=== PATIENT | male | born 1975 | race Caucasian/White ===

== ENCOUNTER 2017-12-22 17:55 | Emergency (ER) | payer OTHER, MEDICAID, SELFPAY ==
[2017-12-22 18:06] VITALS: BP 162/101; PULSE 63; RESP 17; TEMP 36.7; O2SAT 100; BMI 21.7
--- NOTE | 2017-12-22 18:22 | ED.HA ---
HPI - Headache General Chief Complaint: Headache Stated Complaint: MIGRAINE Time Seen by Provider: 12/22/17 18:17 Source: patient Mode of arrival: ambulatory Limitations: no limitations History of Present Illness HPI Narrative: 42-year-old male here for evaluation of a headache. Patient states that it started last evening. Has right-sided is throbbing and aching. Is having photophobia. Does have a history of migraine headaches. He states that he gets about 2 headaches a year. Says the last time that he had a headache like this he came to the emergency department received medicines to the IV which took his pain completely away. Has been on Imitrex in the past but it no longer works for him. No trauma. No fevers. No neck pain. Was a gradual onset. States it feels like his prior headaches. Related Data Previous Rx's Medication Instructions Recorded ondansetron [Zofran ODT] 4 mg SUBLINGUAL Q6HP PRN #20 odt 07/28/17 pantoprazole [Protonix] 40 mg PO QDAY 30 Days #0 tab 07/28/17 Allergies Allergy/AdvReac Type Severity Reaction Status Date / Time codeine Allergy Verified 12/22/17 18:06 paroxetine [From Paxil] Allergy Verified 12/22/17 18:06 Review of Systems Constitutional Denies fatigue, Denies fever(s), Reports headache(s) and Denies weakness Eyes Denies diplopia, Denies loss of vision and Reports photophobia ENT Ears, Nose, Mouth, and Throat: Denies vertigo, Denies dizziness, Denies facial pain and Reports headache(s) Cardiovascular Denies chest pain, Denies syncope, Denies palpitations and Denies dyspnea Respiratory Denies cough and Denies dyspnea Gastrointestinal Gastrointestinal: Denies diarrhea, Denies nausea and Denies vomiting Musculoskeletal Denies myalgias and Denies arthralgias Integumentary/Breasts Denies pruritus and Denies rash Neurologic Denies vertigo, Denies dizziness, Denies syncope, Reports headache(s), Denies focal weakness, Denies loss of vision and Denies weakness Endocrine Denies fatigue and Denies palpitations Hematologic/Lymphatic Denies easy bleeding and Denies easy bruising [facility] Medical History Chronic pain (Acute) Surgical History No pertinent past surgical history (Acute) Social History Smoking Status: Current every day smoker Exam Initial Vital Signs Initial Vital Signs: Vital Signs Temperature 98.0 F 12/22/17 18:06 Pulse Rate 63 12/22/17 18:06 Respiratory Rate 17 12/22/17 18:06 Blood Pressure 162/101 H 12/22/17 18:06 Pulse Oximetry 100 12/22/17 18:06 Const General: cooperative, healthy appearing, comfortable, well developed, well groomed and No acute distress Orientation: alert, awake and oriented x3 HENMT Head: normal to inspection and normocephalic Resp Effort & Inspection: normal respiratory effort Auscultation: clear to auscultation bilaterally Cardio Rate: regular rate Rhythm: regular rhythm GI Inspection: non-distended Palpation: soft Skin Lesions: no lesions Rashes: no rashes Neuro General: alert and oriented x3 Cranial Nerves: CN's II-XI intact bilaterally Cognition: normal cognition Speech: speech normal Motor: muscle tone normal throughout Sensory Exam: no sensory deficits noted Extrem General: normal to inspection and capillary refill normal Psych Appearance: grossly normal and well kempt Course Orders Ordered: Discontinued Medications Diphenhydramine HCl (Benadryl) 25 mg IV NOW ONE Stop: 12/22/17 18:27 Last Admin: 12/22/17 18:40 Dose: 25 mg Sodium Chloride (Normal Saline 0.9%) 1,000 mls @ 1,000 mls/hr IV BOLUS ONE Stop: 12/22/17 19:25 Last Infusion: 12/22/17 19:55 Dose: 0 mls/hr Admin: 12/22/17 18:40 Dose: 1,000 mls/hr Ketorolac Tromethamine (Toradol) 30 mg IV NOW ONE Stop: 12/22/17 18:27 Last Admin: 12/22/17 18:40 Dose: 30 mg Prochlorperazine (Compazine) 10 mg IV NOW ONE Stop: 12/22/17 18:27 Last Admin: 12/22/17 18:39 Dose: 10 mg Vital Signs - 8 hr 12/22/17 18:06 Temperature 98.0 F Pulse Rate 63 Respiratory Rate 17 Blood Pressure 162/101 H Pulse Oximetry 100 MDM - Headache MDM Narrative Medical decision making narrative: Patient reports complete resolution of symptoms after Compazine Benadryl and Toradol here in the emergency department. Headache was like his prior headaches. Will hold on head CT or lumbar puncture for now. Physical exam is not consistent with meningitis. Patient was given return precautions. He was asking to go home. He expressed understanding and agreement plan. Discharge Plan Departure Patient Disposition: Home, Self-Care Clinical Impression: Headache Instructions: DI for Migraine, DI for Headache Activity Restrictions/Additional Instructions: Continue all of your medications as directed. Call your primary care doctor for a follow-up. Return to the emergency department for any new or worsening symptoms Prescriptions: No Action pantoprazole [Protonix] 40 MG tablet,delayed release (DR/EC) 40 mg PO QDAY 30 Days Qty: 0 RF: 0 ondansetron [Zofran ODT] 4 MG tablet,disintegrating 4 mg Sublingual Q6HP PRNQty: 20 RF: 0 Stand Alone Forms: Work/School Restrictions
[2017-12-22] MEDS: PROCHLORPERAZINE 10 MG/2 ML VIAL IV (18:39)
[2017-12-22] MEDS: SODIUM CHLORIDE 0.9% 1,000 ML 1000 ML IV (18:40)
[2017-12-22] MEDS: KETOROLAC 60 MG/2 ML VIAL 30 MG IV (18:40)
[2017-12-22] MEDS: diphenhydrAMINE 50 MG/ML VIAL 25 MG IV (18:40)
[2017-12-22 20:22] VITALS: BP 116/81; PULSE 54; RESP 15; O2SAT 99
== END 2017-12-22 20:23 | disposition home or self-care (01) ==
PROVIDERS: Emergency Provider Emergency Medicine
DX: R51 Headache (principal)
CPT/HCPCS: 96361; 96374; 96375; 99283; 99284; J0780; J1200; J1885

== ENCOUNTER 2018-02-08 17:02 | Emergency (ER) | payer OTHER, MEDICAID, SELFPAY ==
[2018-02-08 17:04] VITALS: BP 173/89; PULSE 52; RESP 15; O2SAT 100; BMI 22.4
--- NOTE | 2018-02-08 17:20 | ED.UPPEXIN ---
HPI - Extremity Injury (Upper) <SORAIDA Pritchard - Last Filed: 02/08/18 22:01> General Chief Complaint: Extremity Injury, Upper Stated Complaint: INFECTED FINGER Time Seen by Provider: 02/08/18 17:20 Source: patient Mode of arrival: ambulatory Limitations: no limitations History of Present Illness HPI narrative: 42-year-old male with history of hypertension is now everyday smoker here for complaint of redness and swelling to his left index finger over the past 3-4 days. He states that he accidentally got a piece of wood splinter into the left index finger. He thinks that he got most of the dial enter out when he was cleaning however he does report worsening redness and swelling to the area is not sure fall splinter came mouth he also reports having a small amount purulent drainage from the puncture site of the splinter area. No fevers or chills. No other trauma reported. No other concerns or complaints. MD complaint: injury to: left and finger Related Data Previous Rx's Medication Instructions Recorded ondansetron [Zofran ODT] 4 mg SUBLINGUAL Q6HP PRN #20 odt 07/28/17 pantoprazole [Protonix] 40 mg PO QDAY 30 Days #0 tab 07/28/17 clindamycin HCl 300 mg PO QID #28 cap 02/08/18 Allergies Allergy/AdvReac Type Severity Reaction Status Date / Time codeine Allergy Verified 02/08/18 17:04 paroxetine [From Paxil] Allergy Verified 02/08/18 17:04 tramadol Allergy Verified 02/08/18 17:04 Review of Systems <SORAIDA Pritchard - Last Filed: 02/08/18 22:01> Constitutional Denies chills, Denies fever(s), Denies lethargy and Denies weakness Eyes Denies change in vision, Denies eye discharge, Denies irritation and Denies loss of vision ENT Ears, Nose, Mouth, and Throat: Denies change in voice, Denies neck pain and Denies sore throat Cardiovascular Denies chest pain, Denies irregular heart rhythm, Denies lightheadedness, Denies palpitations, Denies dyspnea, Denies dyspnea on exertion and Denies orthopnea Respiratory Denies cough, Denies dyspnea, Denies dyspnea on exertion and Denies wheezing Gastrointestinal Gastrointestinal: Denies abdominal pain, Denies change in bowel habits, Denies diarrhea, Denies nausea and Denies vomiting Genitourinary Denies hematuria, Denies flank pain, Denies urinary incontinence and Denies urinary urgency Musculoskeletal Denies neck pain Comments: Splinter to left index finger Neurologic Denies confusion, Denies loss of vision and Denies weakness Psychiatric Denies anxiety, Denies confusion, Denies depression, Denies homicidal ideation and Denies suicidal ideation Endocrine Denies palpitations Hematologic/Lymphatic Denies easy bruising Allergic/Immunologic Denies wheezing Exam <SORAIDA Pritchard - Last Filed: 02/08/18 22:01> Initial Vital Signs Initial Vital Signs: Vital Signs Pulse Rate 52 L 02/08/18 17:04 Respiratory Rate 15 02/08/18 17:04 Blood Pressure 173/89 H 02/08/18 17:04 Pulse Oximetry 100 02/08/18 17:04 Const General: cooperative and well developed Nutritional Appearance: well nourished Orientation: alert, awake, oriented x3 and not confused HENMT Mouth: oral mucosae normal and oropharynx normal Eyes Conjunctivae: conjunctivae normal Sclera: sclerae normal Pupils: PERRL EOM: EOM intact bilaterally Chest Chest: normal inspection of the chest Resp Effort & Inspection: normal respiratory effort, able to speak in complete sentences, no respiratory distress and no use of accessory muscles Auscultation: clear to auscultation bilaterally, no rales, no rhonchi and no wheezes Skin General: no rashes or lesions noted, No jaundice and No petechiae Neuro General: alert, oriented x3, gait normal and no focal motor deficits Speech: speech normal Extrem Other: left middle finger slightly erythematous. No induration or fluctuance. Slight swelling. Distal sensation is intact. Full range of mo tion. Distal cap refill less than 2 sec. 0.5 Cm open lesion that is puncture site to the splinter palmar aspect area of the DIP joint. no foreign bodies appreciated <Karime Small DO - Last Filed: 02/08/18 22:52> Initial Vital Signs Initial Vital Signs: Vital Signs Pulse Rate 52 L 02/08/18 17:04 Respiratory Rate 15 02/08/18 17:04 Blood Pressure 173/89 H 02/08/18 17:04 Pulse Oximetry 100 02/08/18 17:04 Course <SORAIDA Pritchard - Last Filed: 02/08/18 22:01> Orders Ordered: ED Orders 02/08/18 17:49 XR finger LT min 2V Stat Discontinued Medications Diphtheria/Tetanus/Acell Pertussis (Adacel) 0.5 ml IM .ONCE ONE Stop: 02/08/18 17:58 Last Admin: 02/08/18 18:02 Dose: 0.5 ml Vital Signs - 8 hr 02/08/18 17:04 02/08/18 19:17 Pulse Rate 52 L 52 L Respiratory Rate 15 13 Blood Pressure 173/89 H 145/92 H Pulse Oximetry 100 98 <Karime Small DO - Last Filed: 02/08/18 22:52> Orders Ordered: ED Orders 02/08/18 17:49 XR finger LT min 2V Stat Discontinued Medications Diphtheria/Tetanus/Acell Pertussis (Adacel) 0.5 ml IM .ONCE ONE Stop: 02/08/18 17:58 Last Admin: 02/08/18 18:02 Dose: 0.5 ml Vital Signs - 8 hr 02/08/18 17:04 02/08/18 19:17 Pulse Rate 52 L 52 L Respiratory Rate 15 13 Blood Pressure 173/89 H 145/92 H Pulse Oximetry 100 98 MDM - Extremity Injury (Upper) <SORAIDA Pritchard - Last Filed: 02/08/18 22:01> Imaging Data finger : Radiologist's impression: [address] [address] XRay Report Signed Patient: Kameron Duffy JMR#: [id number] : 1975Acct:[id number] Age/Sex: 42 / MDate of Service: 02/08/18 Loc: ED Accession Number: [id number] Procedure: XR finger LT min 2V Ordering Provider: Hemant Galarza PROCEDURE: XR FINGER LT MIN 2V INDICATIONS: possible splinter to left index finger TECHNIQUE: AP hand, 2 views of the second finger(s) acquired. COMPARISON: None. FINDINGS: Bones: No fractures or dislocations. No suspicious bony lesions. Soft tissues: No suspicious soft tissue calcifications. No radiopaque foreign body is noted. IMPRESSION: No gross acute second finger fracture or dislocation. No radiopaque foreign body is seen. Dictated by: Yehuda Redd M.D. on 02/08/2018 at 18:15 Approved by: Yehuda Redd M.D. on 02/08/2018 at 18:16 [facility] Narrative Medical decision making narrative: x-ray of the left fingers were obtained was negative for any acute fractures or foreign bodies. No foreign body is observed on a exam. Wound was cleansed with Shur-Clens and dressed with bacitracin and a dressing. Tetanus was updated in the emergency room. [id number] Tylenol as needed for any discomfort. Will cover for infection to the finger with clindamycin. follow up with primary care provider in the next few days for re-evaluation. For any worsening symptoms return Discharge Plan Departure Patient Disposition: Home Clinical Impression: Splinter of finger Discharge Date/Time: 02/08/18 19:18 Interventions: ED Discharge Assessment Last Done: 02/08/18 19:17 Instructions: DI for Splinter Removal Activity Restrictions/Additional Instructions: x-ray was negative for any foreign bodies or signs of fracture dislocation. splinter is not identified on exam today. Tetanus was updated the emergency room today. Due to signs starting infection here placed on oral antibiotic called clindamycin use as directed. Dress wound daily with antibiotic ointment and a dressing until healed. Follow up with her primary care provider in the next several days for re-evaluation. For any worsening symptoms return to the emergency room. Prescriptions: New clindamycin HCl 300 mg capsule 300 mg PO QID Qty: 28 RF: 0 No Action pantoprazole [Protonix] 40 MG tablet,delayed release (DR/EC) 40 mg PO QDAY 30 Days Qty: 0 RF: 0 ondansetron [Zofran ODT] 4 MG tablet,disintegrating 4 mg Sublingual Q6HP PRNQty: 20 RF: 0 Referrals: [facility] [Provider Group] <Karime Small DO - Last Filed: 02/08/18 22:52> Cosign ED Attending Cosignature Attestation: I was immediately available in the department for consultation. This documentation has been reviewed and I agree with assessment and plan. Supervised by Karime Small DO
--- NOTE | 2018-02-08 17:49 | DI.RAD.S_ITS ---
PROCEDURE: XR FINGER LT MIN 2V INDICATIONS: possible splinter to left index finger TECHNIQUE: AP hand, 2 views of the second finger(s) acquired. COMPARISON: None. FINDINGS: Bones: No fractures or dislocations. No suspicious bony lesions. Soft tissues: No suspicious soft tissue calcifications. No radiopaque foreign body is noted. IMPRESSION: No gross acute second finger fracture or dislocation. No radiopaque foreign body is seen. Dictated by: Yehuda Redd M.D. on 02/08/2018 at 18:15 Approved by: Yehuda Redd M.D. on 02/08/2018 at 18:16
[2018-02-08] MEDS: TET,DIPH,PERTUSS(ACELL),VAC/PF 0.5 ML SYRINGE IM (18:02)
[2018-02-08 19:17] VITALS: BP 145/92; PULSE 52; RESP 13; O2SAT 98
== END 2018-02-08 19:18 | disposition home or self-care (01) ==
PROVIDERS: Emergency Provider Nurse Practitioner Family
DX: S60.451A Superficial foreign body of left index finger, initial encounter (principal); W45.8XXA Other foreign body or object entering through skin, initial encounter
CPT/HCPCS: 73140; 90471; 99282; 99283; 90715

== ENCOUNTER 2018-09-15 22:36 | Emergency (ER) | payer OTHER, MEDICAID, SELFPAY ==
[2018-09-15 22:48] VITALS: BP 121/76; PULSE 67; RESP 16; TEMP 36.9; O2SAT 98
[2018-09-16] MEDS: TRIMETH/SULFA 160/800 PREPACK 1 BOTTLE MISC (00:33)
--- NOTE | 2018-09-16 03:31 | ED_ITS ---
HPI - Extremity Problem General Chief complaint: Extremity Problem,Nontraumatic Stated complaint: RT HAND SWELLING Time Seen by Provider: 09/16/18 00:01 Source: patient Mode of arrival: ambulatory Limitations: no limitations History of Present Illness HPI Narrative: Patient is a 43-year-old male who presents with right hand pain and swelling and redness. He says the neck for the last 2 days progressively getting worse. He has had abscesses in his hands the past. He denies IV drug abuse. He denies fever or chills. Able to move his fingers and thumb easily. MD Complaint: extremity pain and extremity swelling Location: right Related Data Home Medications Medication Instructions Recorded Confirmed gabapentin [Neurontin] 300 mg PO DAILY 09/15/18 09/15/18 metoprolol tartrate 50 mg PO BID 09/15/18 09/15/18 oxycodone 10 mg PO BID 09/15/18 09/15/18 Previous Rx's Medication Instructions Recorded sulfamethoxazole-trimethoprim 1 tab PO BID 7 Days #14 tab 09/16/18 [Bactrim DS] Allergies Allergy/AdvReac Type Severity Reaction Status Date / Time codeine Allergy Verified 09/15/18 22:50 paroxetine [From Paxil] Allergy Verified 09/15/18 22:50 tramadol Allergy Verified 09/15/18 22:50 Review of Systems Review of Systems GENERAL: Denies chills, fatigue, malaise, fever, sweats, travel HEENT: Denies sinus pain, ear pain, sore throat, difficulty swallowing, neck pain RESPIRATORY: Denies dyspnea, cough, wheezing, hemoptysis, sputum. CARDIOVASCULAR: Denies chest pain, palpitations, orthopnea, edema GASTROINTESTINAL: Denies nausea, vomiting, abdominal pain, diarrhea, constipation, melena. : Denies dysuria, frequency, incontinence, hematuria, urinary retention, flank pain. MUSCULOSKELETAL: Denies weakness, joint pain, or bony pain SKIN: See HPI NEUROLOGIC: Denies weakness, dizziness, headache, numbness, change in speech, confusion PSYCHIATRIC: No concerning psychosocial issues. 12 point review of systems is negative except for those stated above and HPI [facility] Medical History Chronic pain (Acute) Surgical History No pertinent past surgical history (Acute) Social History Smoking Status: Current every day smoker Social History Smoking Status: Current every day smoker Exam Initial Vital Signs Initial Vital Signs: Vital Signs Temperature 98.4 F 09/15/18 22:48 Pulse Rate 67 09/15/18 22:48 Respiratory Rate 16 09/15/18 22:48 Blood Pressure 121/76 09/15/18 22:48 Pulse Oximetry 98 09/15/18 22:48 GENERAL: Well-appearing, well-nourished and in no acute distress. CARDIOVASCULAR: peripheral pulses in tact, cap refill <2 sec RESPIRATORY: No respiratory distress, speaks in full sentences without difficulty EXTREMITIES: Normal range of motion, no clubbing or edema. Neurovascularly intact Full range of motion of the right hand and fingers. Has no pain at the scaphoid against resistance of thumb. NEUROLOGICAL: Cranial nerves II through XII grossly intact. Normal gait and speech. SKIN: Right hand abscess 1 cm x 1 cm fluctuation is at base of thumb. He has full flexion-extension of some no induration no streaking Procedures Abscess I/D Site: hand Side (if applicable): right Local Anesthetic: lidocaine 1% Amount of anesthesia used (mL): 2 Technique: needle aspiration Amount of fluid expressed (mL): 2 Irrigation: No Packing used?: none Complications: pain and bleeding Course Orders Ordered: Discontinued Medications Trimethoprim/Sulfamethoxazole (Bactrim Ds Prepack) 1 bottle [facility] ONE Stop: 09/16/18 00:13 Last Admin: 09/16/18 00:33 Dose: 1 bottle Vital Signs - 8 hr 09/15/18 22:48 Temperature 98.4 F Pulse Rate 67 Respiratory Rate 16 Blood Pressure 121/76 Pulse Oximetry 98 MDM - Extremity (Nontraumatic) MDM Narrative Medical decision making narrative: Abscess of hand was drained with his 18 gauge needle pus actually did come out. Overall patient's pain has actually improved. Will put him on antibiotics. Discharge Plan Departure Patient Disposition: Home Clinical Impression: Abscess of hand, right Discharge Date/Time: 09/16/18 00:38 Interventions: ED Discharge Assessment Last Done: 09/16/18 00:36 Instructions: DI for Incision and Drainage of a Skin Abscess Activity Restrictions/Additional Instructions: *You have been diagnosed with right hand skin abscess *What to do: warm compresses *Continue to take medications as directed Bactrim 1 tablet twice daily for 7 days *Follow up with your primary care provider in 2-3 days *Return to ER if you should have redness or swelling in her ability to move fingers or any new, worsening or concerning symptoms Prescriptions: New sulfamethoxazole-trimethoprim [Bactrim DS] 800-160 mg tablet 1 tab PO BID 7 Days Qty: 14 RF: 0 No Action metoprolol tartrate 25 mg tablet 50 mg PO BID RF: 0 gabapentin [Neurontin] 300 mg capsule 300 mg PO DAILY RF: 0 oxycodone 5 mg tablet 10 mg PO BID RF: 0
== END 2018-09-16 00:38 | disposition home or self-care (01) ==
PROVIDERS: Emergency Provider Emergency Medicine
DX: L02.511 Cutaneous abscess of right hand (principal)
CPT/HCPCS: 10060; 99282; 99283

== ENCOUNTER 2019-01-22 11:31 | Emergency (ER) | payer OTHER, MEDICAID, SELFPAY ==
[2019-01-22 11:36] VITALS: BP 145/73; PULSE 82; RESP 18; TEMP 36.7; O2SAT 100; BMI 21.9
[2019-01-22] MEDS: LIDOCAINE 2% INJ MDV 1 ML SUBCUT (15:17)
--- NOTE | 2019-01-22 16:07 | ED.SKABFB ---
HPI - Skin/Abscess/Foreign Bdy <SORAIDA Palomo - Last Filed: 01/23/19 00:49> General Chief complaint: Skin/Abscess/Foreign Body Stated complaint: Infection on behind Time Seen by Provider: 01/22/19 14:31 Source: patient and family Mode of arrival: ambulatory Limitations: no limitations History of Present Illness HPI narrative: This is a 43-year-old gentleman, smoker, who presents with significant other with skin lesion to buttock crack. According to significant other, she had MRSA infection 2 weeks ago and being treated for this. Patient had a lesion on buttock cleavage for several days as a small pimple but today the discomfort, redness, swelling became significantly worse. Patient denies fever, chills but had vomiting x2. According to the significant other, patient is leak gets skin infection throughout his body. Patient denies history of diabetes or immunosuppressed. Last tetanus vaccination was updated in February 2018. Related Data Home Medications Medication Instructions Recorded Confirmed gabapentin [Neurontin] 300 mg PO DAILY 09/15/18 09/15/18 metoprolol tartrate 50 mg PO BID 09/15/18 09/15/18 oxycodone 10 mg PO BID 09/15/18 09/15/18 Previous Rx's Medication Instructions Recorded doxycycline hyclate 100 mg PO BID 7 Days #14 cap 01/22/19 Allergies Allergy/AdvReac Type Severity Reaction Status Date / Time codeine Allergy Verified 01/22/19 11:40 paroxetine [From Paxil] Allergy Verified 01/22/19 11:40 tramadol Allergy Verified 01/22/19 11:40 Review of Systems <SORAIDA Palomo - Last Filed: 01/23/19 00:49> Review of Systems ROS Unobtainable: All systems reviewed & are unremarkable except as noted in HPI and below PFSH <SORAIDA Palomo - Last Filed: 01/23/19 00:49> Medical History Chronic pain (Acute) Surgical History H/O hand surgery (Acute) No pertinent past surgical history (Acute) Social History Smoking Status: Current every day smoker Social History Smoking Status: Current every day smoker Exam <SORAIDA Palomo - Last Filed: 01/23/19 00:49> Narrative Exam Narrative: General appearance: well developed, well nourished, in no acute distress. Head: normocephalic, atraumatic, no scalp lesions, non-tender. Eye: pupil equal, round. EOMI. Nose: nares patent. Oral: mucosa moist. Neck/Thyroid: neck supple, full range of motion, no visible masses. Heart: no clubbing, no cyanosis, no edema. Lungs: Breathing even and unlabored. No stridor. No accessory muscles used. Chest: normal shape and expansion. Abdomen: non-obese, non-distended. Neurologic: alert and oriented. 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 Psych: good eye contact, normal affect. Initial Vital Signs Initial Vital Signs: Vital Signs Temperature 98.1 F 01/22/19 11:36 Pulse Rate 82 01/22/19 11:36 Respiratory Rate 18 01/22/19 11:36 Blood Pressure 145/73 H 01/22/19 11:36 Pulse Oximetry 100 01/22/19 11:36 Skin General: erythema, induration and warm Lesions: lesion noted (Buttock cleavage, painful to light touch, scant purulent drainage) <Álvaro Hamilton DO - Last Filed: 01/23/19 00:53> Initial Vital Signs Initial Vital Signs: Vital Signs Temperature 98.1 F 01/22/19 11:36 Pulse Rate 82 01/22/19 11:36 Respiratory Rate 18 01/22/19 11:36 Blood Pressure 145/73 H 01/22/19 11:36 Pulse Oximetry 100 01/22/19 11:36 Procedures <SORAIDA Palomo - Last Filed: 01/23/19 00:49> Abscess I/D Site: salvatore-rectal (pilonidal cyst) Local Anesthetic: lidocaine 2% Amount of anesthesia used (mL): 2 Technique: incised with #11 blade Amount of fluid expressed (mL): 1 Irrigation: Yes Packing used?: iodoform Complications: other (none and pt tolerated procedure well) Course <SORAIDA Palomo - Last Filed: 01/23/19 00:49> Orders Ordered: ED Orders 01/22/19 16:00 Wound Culture and Gram Stain Stat Discontinued Medications Lidocaine HCl (Xylocaine 2%) 1 ml SUBCUT NOW ONE Stop: 01/22/19 15:06 Last Admin: 01/22/19 15:17 Dose: 1 ml Documented by: LLOYD Vital Signs Vital signs: Vital Signs - 8 hr 01/22/19 11:36 Temperature 98.1 F Pulse Rate 82 Respiratory Rate 18 Blood Pressure 145/73 H Pulse Oximetry 100 <Álvaro Hamilton DO - Last Filed: 01/23/19 00:53> Orders Ordered: ED Orders 01/22/19 16:00 Wound Culture and Gram Stain Stat Discontinued Medications Lidocaine HCl (Xylocaine 2%) 1 ml SUBCUT NOW ONE Stop: 01/22/19 15:06 Last Admin: 01/22/19 15:17 Dose: 1 ml Documented by: LLOYD Vital Signs Vital signs: Vital Signs - 8 hr 01/22/19 11:36 Temperature 98.1 F Pulse Rate 82 Respiratory Rate 18 Blood Pressure 145/73 H Pulse Oximetry 100 MDM - Skin/Abscess/Foreign Bdy <SORAIDA Palomo - Last Filed: 01/23/19 00:49> Differential Diagnosis Differential diagnosis: Likely abscess of skin or subcutaneous tissue (on buttock cleavage), cellulitis and other (pilonidal cyst) Medical Records Attestation: I reviewed the patient's medical records. MDM Narrative Medical decision making narrative: This is 43-year-old male who presents to ED with pilonidal cyst. Patient complain of severe pain with light touch. Mild redness, edema, warmth, scant drainage noted from affected side. Patient denies fever or chills but had 2 episodes of vomiting today. Patient's significant other had recent MRSA infection and treated. Please see procedure note for I & D. 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 Supplies for home dressing change has been provided to patient and significant other. Wound culture is signed out to lab. Patient is prescribed with doxycycline 100 mg b.i.d. dose for 7 day course. Advised warm pack since patient does not use bath tub and to use his own oxycodone as needed for discomfort. The significant other states patient is not allowed to take NSAIDS per his primary care physician due to this elevates his blood pressure. Return precautions were discussed with the patient and advised to follow up with his primary care physician in 2-3 days for re-evaluation. Patient and significant other verbalized understanding and agree with treatment plan. Discharge Plan Departure Patient Disposition: Home Clinical Impression: Pilonidal abscess, Encounter for incision and drainage procedure Discharge Date/Time: 01/22/19 16:31 Instructions: DI for Pilonidal Cyst Drainage and Removal Activity Restrictions/Additional Instructions: You have been diagnosed with [pilonidal cyst and I and D. The culture will be sent out to lab.]. What to do: *Take your medications as directed. Please start antibiotic medication today for next 7 days twice a day and make sure you complete the whole course of antibiotic medication unless this gives allergic reaction. Wound packing change daily and reinforced dressing as needed if it is soaked through. Please use warm pack at least several times a day if you choose not to do Sitz bath to promote healing and drainage. *Follow up with your primary care provider in 2-3 days, call for an appointment. Let them know you were seen in the ED and that we asked you to be seen in follow up. *Return to ED if you have any new, worsening, or concerning symptoms, such as [worsening pain, increasing swelling, redness, fever, warmth, chest pain, breathing difficulty, unable to tolerate fluids, or any acute concerns]. Prescriptions: New doxycycline hyclate 100 mg capsule 100 mg PO BID 7 Days Qty: 14 RF: 0 No Action metoprolol tartrate 25 mg tablet 50 mg PO BID RF: 0 gabapentin [Neurontin] 300 mg capsule 300 mg PO DAILY RF: 0 oxycodone 5 mg tablet 10 mg PO BID RF: 0 Referrals: Zan King MD [Primary Care Provider] - <Álvaro Hamilton DO - Last Filed: 01/23/19 00:53> Sign Out Provider Sign Out Attestation: I was available for consultation during this patient's emergency department encounter
[2019-01-22 16:28] VITALS: BP 156/97; PULSE 85; RESP 18; O2SAT 99
== END 2019-01-22 16:31 | disposition home or self-care (01) ==
PROVIDERS: Emergency Provider Nurse Practitioner Family; PCP Internal Medicine
DX: L05.01 Pilonidal cyst with abscess (principal)
CPT/HCPCS: 10060; 87070; 87075; 87077; 87147; 87186; 87205; 99282

== ENCOUNTER 2019-02-10 12:35 | Emergency (ER) | payer OTHER, MEDICAID, SELFPAY ==
[2019-02-10 12:42] VITALS: BP 171/102; PULSE 51; RESP 20; TEMP 36.9; O2SAT 100
--- NOTE | 2019-02-10 12:43 | PC.NURSE ---
Pt reports he had a pimple last night on his right buttocks that he attempted to pop. Woke today increase pain, redness and swelling. Concerns of staph infection which he has been hospitalized in past for. Denies fevers
--- NOTE | 2019-02-10 12:48 | ED_ITS ---
HPI - Skin/Abscess/Foreign Bdy <SORAIDA Palomo - Last Filed: 02/10/19 22:35> General Chief complaint: Skin/Abscess/Foreign Body Stated complaint: thinks he has a staph infection Time Seen by Provider: 02/10/19 12:42 Source: patient Mode of arrival: Ambulatory Limitations: no limitations History of Present Illness HPI narrative: This is a 43-year-old gentleman, current smoker, who presents to ED with possible staph infection on his right buttock describing as painful and swollen. He reports noticed a small pimple like lesion yesterday and had picked on it. Patient was treated with I and D and doxycycline about a month ago and culture was obtained at that time which showed as MRSA as of pilonidal cyst. Patient reports this has been healed well and has no problem at this time. Patient made an appointment with his PCP but not until next week and his concerned this will get worse. Patient denies fever/chills, nausea or vomiting. He reports gets skin infection very easily and is a recovered IV drug user. Last use of IV drug 5 years ago. Related Data Home Medications Medication Instructions Recorded Confirmed gabapentin [Neurontin] 300 mg PO DAILY 09/15/18 09/15/18 metoprolol tartrate 25 mg PO BID 09/15/18 02/10/19 oxycodone 5 mg PO Q4-6H PRN 09/15/18 02/10/19 dextroamphetamine-amphetamine 20 mg PO BID 02/10/19 Previous Rx's Medication Instructions Recorded doxycycline hyclate 100 mg PO BID 7 Days #14 cap 02/10/19 Allergies Allergy/AdvReac Type Severity Reaction Status Date / Time codeine Allergy Verified 01/22/19 11:40 paroxetine [From Paxil] Allergy Verified 01/22/19 11:40 tramadol Allergy Verified 01/22/19 11:40 Review of Systems <SORAIDA Palomo - Last Filed: 02/10/19 22:35> Review of Systems Narrative: General: Denies fever, chills, fatigue, malaise, sweats. HEENT: Denies sinus pain, ear pain, sore throat, difficulty swallowing, dizziness. Respiratory: Denies dyspnea, cough, wheezing, hemoptysis, sputum. Cardiovascular: Denies chest pain, palpitations, orthopnea, edema. Gastrointestinal: Denies nausea, vomiting, abdominal pain, diarrhea, constipation, melena. : Denies dysuria, frequency, incontinence, hematuria, urinary retention. Musculoskeletal: Denies weakness, joint pain or bony pain. Skin: See HPI Neurologic: Denies weakness, headache, numbness, change in speech, confusion, seizures, incoordination. Psychiatric: No concerning psychosocial issues. 12-point review of systems is negative except for those stated above. PFSH <SORAIDA Palomo - Last Filed: 02/10/19 22:35> Social History Smoking Status: Current every day smoker Exam <SORAIDA Palomo - Last Filed: 02/10/19 22:35> Narrative Exam Narrative: General appearance: well developed, well nourished, in no acute distress. Head: normocephalic, atraumatic, no scalp lesions, non-tender. Eye: pupil equal, round. EOMI. Nose: nares patent. Oral: mucosa moist. Neck/Thyroid: neck supple, full range of motion, no visible masses. Skin: Approximately 1.5 cm for elevated erythematous lesion with dark eye on right buttock without drainage which was traced with a skin pen. About 5 cm induration palpated. No suspicious rashes, lesions over other visible areas. Warm and dry. Heart: no clubbing, no cyanosis, no edema. Lungs: Breathing even and unlabored. No stridor. No accessory muscles used. Chest: normal shape and expansion. Abdomen: non-obese, non-distended. Neurologic: alert and oriented. 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 Psych: good eye contact, normal affect. Initial Vital Signs Initial Vital Signs: Vital Signs Temperature 98.5 F 02/10/19 12:42 Pulse Rate 51 L 02/10/19 12:42 Respiratory Rate 20 02/10/19 12:42 Blood Pressure 171/102 H 02/10/19 12:42 Pulse Oximetry 100 02/10/19 12:42 <Kendal Harrell DO - Last Filed: 02/11/19 08:32> Initial Vital Signs Initial Vital Signs: Vital Signs Temperature 98.5 F 02/10/19 12:42 Pulse Rate 51 L 02/10/19 12:42 Respiratory Rate 20 02/10/19 12:42 Blood Pressure 171/102 H 02/10/19 12:42 Pulse Oximetry 100 02/10/19 12:42 Course <Fuad CardenasSORAIDA - Last Filed: 02/10/19 22:35> Vital Signs Vital signs: Vital Signs - 8 hr 02/10/19 12:42 Temperature 98.5 F Pulse Rate 51 L Respiratory Rate 20 Blood Pressure 171/102 H Pulse Oximetry 100 <Kendal Harrell DO - Last Filed: 02/11/19 08:32> Vital Signs Vital signs: Vital Signs - 8 hr 02/10/19 12:42 Temperature 98.5 F Pulse Rate 51 L Respiratory Rate 20 Blood Pressure 171/102 H Pulse Oximetry 100 MDM - Skin/Abscess/Foreign Bdy <Fuad CardenasSORAIDA - Last Filed: 02/10/19 22:35> Differential Diagnosis Differential diagnosis: Likely abscess of skin or subcutaneous tissue and cellulitis Medical Records Attestation: I reviewed the patient's medical records. [facility] Narrative Medical decision making narrative: This is 43-year-old gentleman who presents to ED with right buttock redness, swelling, pain which started as a pimple yesterday and gotten progressively worse. The patient denies constitutional symptoms. There is no drainage from the site and the physical exam is consistent with cellulitis with induration. No wound culture was obtained today due to lack of drainage. The affected site has lined with a skin marker to compare in a day or so. Patient had for several cellulitis and abscess in his skin in the past. Last wound culture about a month ago from pilonidal cyst came back as MRSA and was treated with Keflex at that time. Patient prescribed with another course of Keflex and advised to follow up with his primary care physician. Return precautions were discussed with the patient and advised to use Hibiclens shower once a week to prevent frequency of skin infection. Patient agrees with the treatment and verbalized understanding. Discharge Plan Departure Patient Disposition: Home Clinical Impression: Cellulitis Qualifiers: Site of cellulitis: buttock Qualified Code(s): L03.317 - Cellulitis of buttock Discharge Date/Time: 02/10/19 13:08 Instructions: DI for Cellulitis -- Adult Activity Restrictions/Additional Instructions: You have been diagnosed with [cellulitis on right buttock. There is no drainage to capture skin culture. History of MRSA infection]. What to do: *Take your medications as directed. Please take doxycycline twice a day for 7 days and this Rx has been transmitted [place]. Please purchase a bottle of Hibiclen and use this once a week to take a shower and hope this will keep the infection frequency decreased. Please do not pick on any skin lesions. *Follow up with your primary care provider in 2-3 days, call for an appointment. Let them know you were seen in the ED and that we asked you to be seen in follow up. *Return to ED if you have any new, worsening, or concerning symptoms, such as [fever, chills, nausea or vomiting, increasing pain/warmth/redness/purulent di scharge, chest pain, breathing difficulty, or any acute concerns]. Prescriptions: New doxycycline hyclate 100 mg capsule 100 mg PO BID 7 Days Qty: 14 RF: 0 No Action metoprolol tartrate 25 mg tablet 25 mg PO BID RF: 0 gabapentin [Neurontin] 300 mg capsule 300 mg PO DAILY RF: 0 oxycodone 5 mg tablet 5 mg PO Q4-6H PRN (Reason: pain) RF: 0 dextroamphetamine-amphetamine 20 mg tablet 20 mg PO BID RF: 0 Referrals: Zan King MD [Primary Care Provider] -
[2019-02-10 13:07] VITALS: BP 129/83; PULSE 55; RESP 16; O2SAT 99
== END 2019-02-10 13:08 | disposition home or self-care (01) ==
PROVIDERS: Emergency Provider Nurse Practitioner Family; PCP Internal Medicine
DX: L03.317 Cellulitis of buttock (principal)
CPT/HCPCS: 99282

== ENCOUNTER 2020-10-12 08:32 | Emergency (ER) | payer OTHER, MEDICAID, SELFPAY ==
[2020-10-12 08:54] VITALS: BP 168/101; PULSE 74; RESP 18; TEMP 36.2; O2SAT 99
[2020-10-12] MEDS: LIDOCAINE 1% (PF) 6 ML SUBCUT (09:10)
--- NOTE | 2020-10-12 09:20 | ED_ITS ---
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 His he states he is going through a divorce he does not typically use IV drugs. His he has an obvious abscess in his left deltoid he denies any fever or chills numbness or tingling MD complaint: abscess/boil Onset (ago): day(s) (4) Location: LUE Severity: severe Related Data Home Medications Medication Instructions Recorded Confirmed gabapentin [Neurontin] 300 mg PO DAILY 09/15/18 09/15/18 metoprolol tartrate 25 mg PO BID 09/15/18 02/10/19 oxycodone 5 mg PO Q4-6H PRN 09/15/18 02/10/19 dextroamphetamine-amphetamine 20 mg PO BID 02/10/19 Previous Rx's Medication Instructions Recorded sulfamethoxazole-trimethoprim 1 tab PO BID 7 Days #14 tab 10/12/20 [Bactrim DS] Allergies Allergy/AdvReac Type Severity Reaction Status Date / Time codeine Allergy Verified 01/22/19 11:40 paroxetine [From Paxil] Allergy Verified 01/22/19 11:40 tramadol Allergy Verified 01/22/19 11:40 Review of Systems Review of Systems Narrative: GENERAL: Denies chills,fever HEENT: Denies throat pain RESPIRATORY: Denies dyspnea, cough, wheezing CARDIOVASCULAR: Denies chest pain, palpitations GASTROINTESTINAL: Denies nausea, vomiting MUSCULOSKELETAL: Denies extremity pain, injury SKIN: See HPI NEUROLOGIC: Denies weakness, dizziness, headache, numbness 8 point review of systems is negative except for those stated above and HPI Patient History Medical History (Updated 10/12/20 @ 09:24 by Kendal Harrell DO) Chronic pain Surgical History H/O hand surgery No pertinent past surgical history Social History Smoking Status: Current every day smoker Smoking Status: Current every day smoker alcohol intake frequency: 0-2 drinks per day Substance Use Type: marijuana Exam Initial Vital Signs Initial Vital Signs: Vital Signs Temperature 97.2 F L 10/12/20 08:54 Pulse Rate 74 10/12/20 08:54 Respiratory Rate 18 10/12/20 08:54 Blood Pressure 168/101 H 10/12/20 08:54 Pulse Oximetry 99 10/12/20 08:54 GENERAL: Well-appearing, well-nourished and in no acute distress. CARDIOVASCULAR: peripheral pulses in tact, cap refill <2 sec RESPIRATORY: No respiratory distress, speaks in full sentences without difficulty EXTREMITIES: Normal range of motion, no clubbing or edema. Neurovascularly int act. Sensation in hand intact distal radial pulse intact NEUROLOGICAL: Cranial nerves II through XII grossly intact. Normal gait and speech. SKIN: Left deltoid 10 cm x 10 cm fluctuant erythematous abscess Procedures Abscess I/D I&D #1: Site: upper extremity Side (if applicable): left Local Anesthetic: lidocaine 1% Amount of anesthesia used (mL): 4 Technique: incised with #11 blade Amount of fluid expressed (mL): 10 Irrigation: No Packing used?: iodoform Complications: pain and bleeding Course Orders Ordered: ED Orders 10/12/20 09:43 Wound Culture and Gram Stain Stat Discontinued Medications Lidocaine HCl (Lidocaine 1% (Pf)) 6 ml SUBCUT NOW ONE Stop: 10/12/20 08:57 Last Admin: 10/12/20 09:10 Dose: 6 ml Documented by: [email or web address] MDM - Skin/Abscess/Foreign Bdy MDM Narrative Medical decision making narrative: Patient has appointment with his PCP in 2 days. He overall does not appear septic he is afebrile. Wound is packed with iodoform packing. Quite a bit of pus was drained. Discharge Plan Departure Patient Disposition: Home Clinical Impression: Abscess of arm, left Instructions: DI for Incision and Drainage of a Skin Abscess Activity Restrictions/Additional Instructions: *You have been diagnosed with abscess left arm *What to do: Do not inject drugs. Wound should start feeling better. May need repacking with her primary care provider on Wednesday. Please start antibiotics today *Continue to take medications as directed Bactrim 1 tablet twice a day for 7 days--> SENT TO [facility] [place] Tylenol 650 mg every 4-6 hours if needed for [id number] pain Ibuprofen 800 mg every 8 hours if needed for [id number] pain *Follow up with your primary care provider in 2-3 days *Return to ER if you should have increasing redness, fever, chills, increasing pain or any new, worsening or concerning symptoms Prescriptions: New sulfamethoxazole-trimethoprim [Bactrim DS] 800-160 mg tablet 1 tab PO BID 7 Days Qty: 14 RF: 0 No Action metoprolol tartrate 25 mg tablet 25 mg PO BID RF: 0 gabapentin [Neurontin] 300 mg capsule 300 mg PO DAILY RF: 0 oxycodone 5 mg tablet 5 mg PO Q4-6H PRN (Reason: pain) RF: 0 dextroamphetamine-amphetamine 20 mg tablet 20 mg PO BID RF: 0 Referrals: Zan King MD [Primary Care Provider] -
--- NOTE | 2020-10-12 09:38 | PC.NURSE ---
provider drained wound with incision. Packed it with iodoform. non adherent pad placed over incisions with 2 large bandaids placed over.
== END 2020-10-12 09:41 | disposition home or self-care (01) ==
PROVIDERS: Emergency Provider Emergency Medicine; PCP Internal Medicine
DX: L02.414 Cutaneous abscess of left upper limb (principal)
CPT/HCPCS: 10060; 87070; 87075; 87077; 87147; 87186; 87205; 99281; 99283

== ENCOUNTER 2021-02-14 01:33 | Emergency (ER) | payer OTHER, MEDICAID, SELFPAY ==
[2021-02-14] VITALS (7 sets, daily range): BP systolic 162–185; BP diastolic 103–115; PULSE 81–95; RESP 18–91; TEMP 36.9; O2SAT 95–100; BMI 23.0
[2021-02-14] MEDS: DOXYCYCLINE HYCLATE 100 MG TABLET PO (02:05)
[2021-02-14] MEDS: BUPIVACAINE 0.5% (PF) VIAL 5 ML SUBCUT (02:05)
--- NOTE | 2021-02-14 03:17 | ED_ITS ---
HPI - Skin/Abscess/Foreign Bdy General Chief complaint: Skin/Abscess/Foreign Body Stated complaint: abcess on rt arm Time Seen by Provider: 02/14/21 01:45 Source: patient Mode of arrival: Ambulatory Limitations: no limitations History of Present Illness HPI narrative: 45-year-old male smoker with prior skin infections presents with a chief complaint of pain, swelling and redness on his right shoulder for the past few days. He admits to recent injections of tar heroin and this region. He did make attempts to drain it at home but was unsuccessful. He denies any chest pain or shortness of breath. He denies any fever, shaking chills nor nausea or vomiting. Related Data Home Medications Medication Instructions Recorded Confirmed gabapentin 300 mg capsule 300 mg PO DAILY 09/15/18 09/15/18 (Neurontin) metoprolol tartrate 25 mg tablet 25 mg PO BID 09/15/18 02/10/19 oxycodone 5 mg tablet 5 mg PO Q4-6H PRN 09/15/18 02/10/19 dextroamphetamine-amphetamine 20 20 mg PO BID 02/10/19 mg tablet Previous Rx's Medication Instructions Recorded doxycycline hyclate 100 mg tablet 100 mg PO BID #20 tab 02/14/21 Allergies Allergy/AdvReac Type Severity Reaction Status Date / Time codeine Allergy Verified 01/22/19 11:40 paroxetine [From Paxil] Allergy Verified 01/22/19 11:40 tramadol Allergy Verified 01/22/19 11:40 Review of Systems Review of Systems Narrative: GENERAL: Denies chills, fatigue, malaise, fever, sweats. HEENT: Denies sinus pain, ear pain, sore throat, difficulty swallowing, dizziness. RESPIRATORY: Denies dyspnea, cough, wheezing, hemoptysis, sputum. CARDIOVASCULAR: Denies chest pain, palpitations, orthopnea, edema, GASTROINTESTINAL: Denies nausea, vomiting, abdominal pain, diarrhea, constipation, melena. : Denies dysuria, frequency, incontinence, hematuria, urinary retention. MUSCULOSKELETAL: denies weakness, joint pain, or bony pain SKIN: See HPI NEUROLOGIC: Denies weakness, headache, numbness, change in speech, confusion, seizures, incoordination. PSYCHIATRIC: No concerning psychosocial issues. 12 point review of systems is negative except for those stated above Patient History Medical History (Updated 02/15/21 @ 23:21 by Alvin Reyes DO) Chronic pain Surgical History H/O hand surgery No pertinent past surgical history Social History Smoking Status: Current every day smoker Smoking Status: Current every day smoker alcohol intake frequency: 0-2 drinks per day Substance Use Type: marijuana Exam Narrative Exam Narrative: GEN: AOx3 and in mild distress EYES: Pupils are equal, round, and reactive to light and accommodation. Extraoccular muscles are intact bilaterally. There is no subconjunctival hemorrhage or exudate. CHEST: Lungs are clear to auscultation bilaterally and free of wheezes, rales, or rhonchi. Heart rate is regular rhythm, there are no murmurs, clicks, rubs, or gallops. There is no chest wall tenderness. ABD: Abdomen is soft and nontender. There is no guarding or rebound. Bowel sounds are normal in all 4 quadrants. There is no mass or organomegaly. EXT: Full painless ROM of all extremities with no loss of sensation or strength. SKIN: 7 x 8 cm area of fluctuance on right deltoid with erythema, warmth and tenderness. There is notable surrounding erythema and induration. No lymphangitis noted. Initial Vital Signs Initial Vital Signs: Vital Signs Temperature 98.5 F 02/14/21 01:55 Pulse Rate 92 H 02/14/21 01:55 Respiratory Rate 18 02/14/21 01:55 Blood Pressure 175/107 H 02/14/21 01:55 Pulse Oximetry 100 02/14/21 01:55 Procedures Abscess I/D I&D #1: Site: upper extremity Side (if applicable): right Sedation/analgesia: midazolam Local Anesthetic: bupivacaine 0.25% Amount of anesthesia used (mL): 8 Amount of fluid expressed (mL): 15 Course Course Decision to Admit Date: 02/14/21 Decision to Admit time: 03:45 Orders Ordered: Discontinued Medications Bupivacaine HCl (Bupivacaine 0.5% (Pf) Vial) 5 ml SUBCUT NOW ONE Stop: 02/14/21 01:57 Last Admin: 02/14/21 02:05 Dose: 5 ml Documented by: VIVI Doxycycline Hyclate (Doxycycline Hyclate 100 Mg Tablet) 100 mg PO NOW ONE Stop: 02/14/21 01:57 Last Admin: 02/14/21 02:05 Dose: 100 mg Documented by: VIVI Midazolam HCl (Midazolam 5 Mg/Ml Vial) 10 mg NASAL NOW ONE Stop: 02/14/21 04:55 Last Admin: 02/14/21 05:05 Dose: 10 mg Documented by: VIVI Consultations Consultation #1: Given size and depth of abscess, and inability to adequately control pain at the bedside I have consulted General surgery (Dr. Perry) who will see the patient at the bedside and will perform either bedside drainage or consider a washout in the OR. Please see his documentation for details Vital Signs Vital signs: Vital Signs - 8 hr 02/14/21 01:55 02/14/21 05:09 02/14/21 05:10 Temperature 98.5 F Pulse Rate 92 H 89 93 H Respiratory Rate 18 Blood Pressure 175/107 H 162/103 H Pulse Oximetry 100 99 98 02/14/21 05:30 02/14/21 06:00 02/14/21 06:30 Temperature Pulse Rate 87 85 81 Respiratory Rate Blood Pressure Pulse Oximetry 97 95 95 02/14/21 07:22 Temperature Pulse Rate 95 H Respiratory Rate 91 H Blood Pressure 185/115 H Pulse Oximetry MDM - Skin/Abscess/Foreign Bdy Lab Data Labs: Lab Results 02/14/21 Range/Units 06:20 SARS-CoV-2 (PCR) Negative (Negative) Imaging Data Extremity x-ray #1: Radiologist's Impression: [address] [address] XRay Report Signed Patient: Kameron Duffy MR#: [id number] : 1975 Acct:[id number] Age/Sex: 45 / M Date of Service: 02/14/21 Loc: ED Accession Number: [id number] ?? Procedure: XR shoulder RT min 2V Ordering Provider: Alvin Reyes D.O. PROCEDURE:? XR SHOULDER RT MIN 2V ? INDICATIONS:? possible foreign body,? IVDA, large abscess, preop per surgery ? TECHNIQUE:? 2 views of the shoulder were acquired.? ? COMPARISON:? None. ? FINDINGS:? ? Bones:? No fractures or dislocations.? No suspicious bony lesions.? Visualized ribs appear intact.? ? Soft tissues:? No suspicious soft tissue calcifications.? No radiopaque foreign body. ? IMPRESSION:? No radiopaque foreign body. ? ? Dictated by: Gayla Barron M.D. on 02/14/2021 at 8:42 ? ? Approved by: Gayla Barron M.D. on 02/14/2021 at 8:43 ? MDM Narrative Medical decision making narrative: Patient with a large deep abscess and surrounding cellulitis. Despite our best efforts and attempts to ring block with bupivacaine and sedate with Versed IM unable to keep each and comfortable and I off to allow a safe and appropriate incision and drainage. General surgery has been contacted and they plan to come and see the patient at the bedside and will likely take to the OR for incision and drainage. They did request an x-ray to rule out potential foreign body or retained needle Patient had been seen the bedside by Dr. Perry, please see his note for the details of his exam but incision was opened up a bit and packed. Patient eloped despite encouragement to stay, he was still a bit groggy from the Versed and had an IV in his left anterior shoulder and refused to stay despite our encouragement. Police were notified as he is high risk given the fact he is under the influence, and has an IV in place with a history of IV drug abuse Discharge Plan Departure Patient Disposition: Left Against Medical Advice Clinical Impression: Abscess of skin or subcutaneous tissue Instructions: DI for Skin Abscess Prescriptions: New doxycycline hyclate 100 mg tablet 100 mg PO BID Qty: 20 RF: 0 No Action metoprolol tartrate 25 mg tablet 25 mg PO BID RF: 0 gabapentin [Neurontin] 300 mg capsule 300 mg PO DAILY RF: 0 oxycodone 5 mg tablet 5 mg PO Q4-6H PRN (Reason: pain) RF: 0 dextroamphetamine-amphetamine 20 mg tablet 20 mg PO BID RF: 0 Referrals: Zan King MD [Primary Care Provider] - Stand Alone Forms: Against Medical Advice
[2021-02-14] MEDS: MIDAZOLAM 5 MG/ML VIAL 10 MG NASAL (05:05)
--- NOTE | 2021-02-14 06:00 | DI.RAD.S_ITS ---
PROCEDURE: XR SHOULDER RT MIN 2V INDICATIONS: possible foreign body, IVDA, large abscess, preop per surgery TECHNIQUE: 2 views of the shoulder were acquired. COMPARISON: None. FINDINGS: Bones: No fractures or dislocations. No suspicious bony lesions. Visualized ribs appear intact. Soft tissues: No suspicious soft tissue calcifications. No radiopaque foreign body. IMPRESSION: No radiopaque foreign body. Dictated by: Gayla Barron M.D. on 02/14/2021 at 8:42 Approved by: Gayla Barron M.D. on 02/14/2021 at 8:43
[2021-02-14 06:43] LABS: COVID19 -Nasal RAPID Negative (Negative)
--- NOTE | 2021-02-14 07:34 | PC.NURSE ---
General surgeon in to see patient. Surgeon able to drain and pack abscess. Pt then proceeded to get dressed and ambulated out of the emergency department. Followed pt to parking lot stating we needed to remove his iv before he left. PT stated it was already removed it and got in a car and drove away. Room checked, no iv seen. [employer] called and informed of drug use and iv in place along with other meds given to patient that would affect his driving.
== END 2021-02-14 07:48 | disposition left against medical advice (07) ==
PROVIDERS: Emergency Provider Emergency Medicine; PCP Internal Medicine
DX: L02.413 Cutaneous abscess of right upper limb (principal); Z20.822 Contact with and (suspected) exposure to COVID-19
CPT/HCPCS: 10060; 73030; 87070; 87077; 87147; 87186; 87205; 87635; 99283; C9803; J2250

== ENCOUNTER 2021-11-17 19:26 | Emergency (ER) | payer OTHER, MEDICAID, SELFPAY ==
[2021-11-17 19:30] VITALS: BP 133/83; PULSE 73; RESP 16; TEMP 36.9; O2SAT 100; BMI 20.1
--- NOTE | 2021-11-17 20:01 | ED.SKABFB ---
HPI - Skin/Abscess/Foreign Bdy General Chief complaint: Skin/Abscess/Foreign Body Stated complaint: UPPER LEFT ARM INFECTION Time Seen by Provider: 11/17/21 19:46 Source: patient and family Mode of arrival: Ambulatory Limitations: no limitations History of Present Illness HPI narrative: Patient is a 46-year-old male here for evaluation of an infection in his left upper arm. He does inject illicit substances. He started to feel pain and discomfort and swelling this area a couple days ago. He was seen in an outside facility. He reported that a bedside ultrasound was done and he was told that there was not a fluid collection there. He was started on Bactrim. Has been taking this medication for the past 2 days. Things have worsened so he came to the ER for evaluation. Related Data Home Medications Medication Instructions Recorded Confirmed gabapentin 300 mg capsule 300 mg PO DAILY 09/15/18 09/15/18 (Neurontin) metoprolol tartrate 25 mg tablet 25 mg PO BID 09/15/18 02/10/19 oxycodone 5 mg tablet 5 mg PO Q4-6H PRN pain 09/15/18 02/10/19 dextroamphetamine-amphetamine 20 20 mg PO BID 02/10/19 mg tablet Previous Rx's Medication Instructions Recorded doxycycline hyclate 100 mg tablet 100 mg PO BID #20 tabs 02/14/21 Allergies Allergy/AdvReac Type Severity Reaction Status Date / Time codeine Allergy Verified 01/22/19 11:40 paroxetine [From Paxil] Allergy Verified 01/22/19 11:40 tramadol Allergy Verified 01/22/19 11:40 Review of Systems Constitutional Constitutional: Reports system reviewed and no additional complaints, except as documented Musculoskeletal Musculoskeletal: Reports system reviewed and no additional complaints, except as documented Integumentary/Breasts Skin/Breast: Reports system reviewed and no additional complaints, except as documented Hematologic/Lymphatic On Anticoagulants: No Patient History Medical History Chronic pain Surgical History H/O hand surgery No pertinent past surgical history Social History Smoking Status: Current some day smoker Smoking Status: Current some day smoker tobacco type: cigarettes alcohol intake frequency: 0-2 drinks per day Substance Use Type: marijuana, heroin and amphetamines Exam Initial Vital Signs Initial Vital Signs: Vital Signs Temperature 98.5 F 11/17/21 19:30 Pulse Rate 73 11/17/21 19:30 Respiratory Rate 16 11/17/21 19:30 Blood Pressure 133/83 11/17/21 19:30 Pulse Oximetry 100 11/17/21 19:30 Oxygen Delivery Method 11/17/21 19:30 Const General: cooperative and comfortable HENFL Head: normal to inspection and normocephalic Skin Other: Area of erythema on the upper lateral aspect of the left arm. Extrem Other: Patient with a large area of induration and swelling to the upper lateral aspect of the left arm. Tender to palpation. His left shoulder and left elbow are unremarkable. Procedures Abscess I/D I&D #1: Site: upper extremity Side (if applicable): left Local Anesthetic: lidocaine 2% Amount of anesthesia used (mL): 5 Technique: incised with #11 blade Irrigation: No Packing used?: iodoform Course Vital Signs Vital signs: Vital Signs - 8 hr 11/17/21 19:30 Temperature 98.5 F Pulse Rate 73 Respiratory Rate 16 Blood Pressure 133/83 Pulse Oximetry 100 Oxygen Delivery Method Room Air MDM - Skin/Abscess/Foreign Bdy MDM Narrative Medical decision making narrative: Bedside ultrasound did show a fluid collection. An incision and drainage was performed with drainage of purulent material. A small amount of packing was placed. Will have him continue on his Bactrim. He is nontoxic appearing. No indication for admission to the hospital. He was given care instructions and return precautions. He expressed understanding and agreement. Discharge Plan Departure Patient Disposition: Home Clinical Impression: Abscess Instructions: DI for Skin Abscess Activity Restrictions/Additional Instructions: Continue to take the antibiotics that you have already started that were prescribed to you from the other hospital. Expect some drainage from the wound. Change the bandage as needed. The packing needs to stay in for 48 hours. At the end of 48 hours you can just grab the end of the packing and pull it out. Afterwards continue to cover with a bandage. Contact your primary doctor for follow-up. Return to the emergency department for any new or worsening symptoms. Prescriptions: No Action doxycycline hyclate 100 mg tablet 100 mg PO BID Qty: 20 0RF metoprolol tartrate 25 mg tablet 25 mg PO BID gabapentin [Neurontin] 300 mg capsule 300 mg PO DAILY oxycodone 5 mg tablet 5 mg PO Q4-6H PRN (Reason: pain) Label Comments: TK 2 TS PO IN AM AND 1 T PO AT LUNCH AND 2 TS PO AT HS dextroamphetamine-amphetamine 20 mg tablet 20 mg PO BID Referrals: Zan King MD [Primary Care Provider] - Visit Report Forms: Patient Portal/API
--- NOTE | 2021-11-17 20:08 | PC.NURSE ---
Assessment deferred to provider.
== END 2021-11-17 20:12 | disposition home or self-care (01) ==
PROVIDERS: Emergency Provider Emergency Medicine; PCP Internal Medicine
DX: L02.414 Cutaneous abscess of left upper limb (principal)
CPT/HCPCS: 10060; 99281; 99283

== ENCOUNTER 2022-01-06 15:09 | Emergency (ER) | payer OTHER, MEDICAID, SELFPAY ==
[2022-01-06 15:16] VITALS: BP 156/93; PULSE 65; RESP 18; TEMP 37; O2SAT 100
--- NOTE | 2022-01-06 17:36 | ED.SKABFB ---
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 Patient has a history of abscesses. He denies any illicit drug use. He denies any significant alcohol consumption. He states he took some Keflex at home but it got worse. He denies fever chills, he denies any swelling of his lower extremities. Related Data Home Medications Medication Instructions Recorded Confirmed gabapentin 300 mg capsule 300 mg PO DAILY 09/15/18 09/15/18 (Neurontin) metoprolol tartrate 25 mg tablet 25 mg PO BID 09/15/18 02/10/19 oxycodone 5 mg tablet 5 mg PO Q4-6H PRN pain 09/15/18 02/10/19 dextroamphetamine-amphetamine 20 20 mg PO BID 02/10/19 mg tablet Previous Rx's Medication Instructions Recorded doxycycline hyclate 100 mg tablet 100 mg PO BID #20 tabs 02/14/21 doxycycline hyclate 100 mg tablet 100 mg PO BID 7 days #14 tabs 01/06/22 oxycodone-acetaminophen 5 mg-325 1 tab PO Q8H PRN pain #7 tabs 01/06/22 mg tablet (Percocet) Allergies Allergy/AdvReac Type Severity Reaction Status Date / Time codeine Allergy Verified 01/22/19 11:40 paroxetine [From Paxil] Allergy Verified 01/22/19 11:40 tramadol Allergy Verified 01/22/19 11:40 Review of Systems <SORAIDA Christine - Last Filed: 01/06/22 18:02> Review of Systems Narrative: Review of systems is negative for acute abnormalities unless otherwise noted in HPI Patient History <SORAIDA Christine - Last Filed: 01/06/22 18:02> Medical History Chronic pain Surgical History H/O hand surgery No pertinent past surgical history Social History Smoking Status: Current some day smoker Smoking Status: Current some day smoker tobacco type: cigarettes alcohol intake frequency: 0-2 drinks per day Substance Use Type: marijuana, heroin and amphetamines Exam <SORAIDA Christine - Last Filed: 01/06/22 18:02> Narrative Exam Narrative: Reviewed vitals signs and nursing notes. General: cooperative, comfortable, in no acute distress, well groomed HEENT: symmetrical facial expressions, moist mucous membranes Cardiovascular: regular rate and rhythm, no peripheral edema, warm extremities Respiratory: normal effort, able to speak in complete sentences, without wheezing, stridor, or abnormal breath sounds. No retractions or tachypnea. GI: abdomen soft, nontender to palpation, nondistended, without masses, rebound tenderness or exquisite tenderness with exam. MSK: moves all extremities, neurovascularly intact, no weakness, normal tone Skin: brisk capillary refill, without pallor or erythema, 2 abscesses to the upper posterior right thigh with surrounding cellulitis, fluctuance over to aspects and incision and drainage was completed with an 18 gauge needle, 5 mL was aspirated from both abscesses and sent to lab for culture and sensitivity. Neuro: normal speech and cognition, A&O x3, ambulatory, clear speech Psych: mental status is grossly normal, congruent mood, normal affect, pleasant and cooperative Initial Vital Signs Initial Vital Signs: Vital Signs Temperature 98.6 F 01/06/22 15:16 Pulse Rate 65 01/06/22 15:16 Respiratory Rate 18 01/06/22 15:16 Blood Pressure 156/93 H 01/06/22 15:16 Pulse Oximetry 100 01/06/22 15:16 Oxygen Delivery Method 01/06/22 15:16 <Karime Small DO - Last Filed: 01/10/22 08:54> Initial Vital Signs Initial Vital Signs: Vital Signs Temperature 98.6 F 01/06/22 15:16 Pulse Rate 65 01/06/22 15:16 Respiratory Rate 18 01/06/22 15:16 Blood Pressure 156/93 H 01/06/22 15:16 Pulse Oximetry 100 01/06/22 15:16 Oxygen Delivery Method 01/06/22 15:16 Procedures <SORAIDA Christine - Last Filed: 01/06/22 18:02> Abscess I/D I&D #1: Site: lower extremity Side (if applicable): right Sedation/analgesia: none Local Anesthetic: lidocaine 1% and with epi Amount of anesthesia used (mL): 3 Technique: needle aspiration Amount of fluid expressed (mL): 10 Irrigation: No Packing used?: none Complications: other (none) Course <SORAIDA Christine - Last Filed: 01/06/22 18:02> Orders Ordered: Discontinued Medications Hydrocodone Bitart/Acetaminophen (Hydrocodone/Acet 5/325 Tablet) 1 tab PO NOW ONE Stop: 01/06/22 17:52 Last Admin: 01/06/22 17:58 Dose: Not Given Documented By: FLORINA Doxycycline Hyclate (Doxycycline Hyclate 100 Mg Tablet) 100 mg PO NOW ONE Stop: 01/06/22 17:52 Last Admin: 01/06/22 18:04 Dose: 100 mg Documented By: FLORINA Ketorolac Tromethamine (Ketorolac 30 Mg/Ml Vial) 15 mg IM NOW ONE Stop: 01/06/22 17:52 Last Admin: 01/06/22 18:04 Dose: 15 mg Documented By: FLORINA Oxycodone/Acetaminophen (Oxycodone/Acetaminophen 5/325 Tablet) 1 tab PO NOW ONE Stop: 01/06/22 17:56 Last Admin: 01/06/22 18:04 Dose: 1 tab Documented By: FLORINA Vital Signs Vital signs: Vital Signs - 8 hr 01/06/22 15:16 Temperature 98.6 F Pulse Rate 65 Respiratory Rate 18 Blood Pressure 156/93 H Pulse Oximetry 100 Oxygen Delivery Method Room Air <Karime Small DO - Last Filed: 01/10/22 08:54> Orders Ordered: Discontinued Medications Hydrocodone Bitart/Acetaminophen (Hydrocodone/Acet 5/325 Tablet) 1 tab PO NOW ONE Stop: 01/06/22 17:52 Last Admin: 01/06/22 17:58 Dose: Not Given Documented By: SB Doxycycline Hyclate (Doxycycline Hyclate 100 Mg Tablet) 100 mg PO NOW ONE Stop: 01/06/22 17:52 Last Admin: 01/06/22 18:04 Dose: 100 mg Documented By: FLORINA Ketorolac Tromethamine (Ketorolac 30 Mg/Ml Vial) 15 mg IM NOW ONE Stop: 01/06/22 17:52 Last Admin: 01/06/22 18:04 Dose: 15 mg Documented By: FLORINA Oxycodone/Acetaminophen (Oxycodone/Acetaminophen 5/325 Tablet) 1 tab PO NOW ONE Stop: 01/06/22 17:56 Last Admin: 01/06/22 18:04 Dose: 1 tab Documented By: FLORINA Vital Signs Vital signs: Vital Signs - 8 hr 01/06/22 15:16 Temperature 98.6 F Pulse Rate 65 Respiratory Rate 18 Blood Pressure 156/93 H Pulse Oximetry 100 Oxygen Delivery Method Room Air MDM - Skin/Abscess/Foreign Bdy <SORAIDA Christine - Last Filed: 01/06/22 18:02> NAVNI Narrative Medical decision making narrative: This is a 46-year-old male with history of MRSA who presents to the emergency department with an abscess with surrounding cellulitis to his right posterior leg. He has a history of heroin, methamphetamine and other illicit drug use. He denies any of this today. Incision drainage was completed for the 2 abscesses to his posterior upper right thigh, 5 mL of purulence drainage was aspirated from both wounds with fluctuance. Wound culture was obtained for sensitivity as patient has documented history of MRSA. He was prescribed doxycycline b.i.d. for the next 7 days, encouraged to do warm compresses and follow up with his primary care provider. Discouraged illicit drug use and encourage patient to abstain. Patient is appropriate and amenable to discharge home. Vital signs are stable on repeat examination is unremarkable. Patient has been informed of results. Patient has been given strict return to ER precautions for any new or worsening symptoms. Patient understands to follow up closely with outpatient providers as instructed. Patient understands plan and agrees to discharge home. All questions and concerns answered at this time. Discharge Plan Departure Patient Disposition: Home Clinical Impression: Cellulitis and abscess of right leg Instructions: Cellulitis, Incision and Drainage of a Skin Abscess Activity Restrictions/Additional Instructions: *You have been diagnosed with two abscesses of your right leg with surrounding cellulitis. Please take this antibiotic twice a day for the next 7 days, you do have a history of MRSA presume that this is MRSA which is difficult to antibiotics sometimes. We will call you if we need to change your antibiotic. Please use ibuprofen 600 mg every 6 hours as needed for your pain, you can take Tylenol in addition to that, I prescribed for you Percocet with doxycycline. Please do warm compresses to help drainage out of the new holes. Follow-up with your primary care provider if you have any worsening from this. I hope you feel better soon. Thank you for your patience and trusting us with your care. *What to do: *Please continue to take your regular medications as directed. [ x] New medication prescriptions sent to your pharmacy: [ [facility]] [ ] New medication written as a paper prescription [ ] No new medications given *Please follow up with your primary care provider in 2-3 days, call for an appointment. Let them know you were seen in the Emergency Department and that we asked that you be seen for follow-up. We will electronically transmit a record of today's note if your PCP is in our system *If you do not have a primary care provider please contact [phone] to establish care with one of [facility] primary care providers. *Return to Emergency Department if you should have any new, worsening, or concerning symptoms, such as [fever greater than 101F, chills, worsening pain, persistent vomiting or other bothersome symptoms]. Prescriptions: New doxycycline hyclate 100 mg tablet 100 mg PO BID 7 Days Qty: 14 0RF oxycodone-acetaminophen [Percocet] 5-325 mg tablet 1 tab PO Q8H PRN (Reason: pain) Qty: 7 0RF No Action doxycycline hyclate 100 mg tablet 100 mg PO BID Qty: 20 0RF metoprolol tartrate 25 mg tablet 25 mg PO BID gabapentin [Neurontin] 300 mg capsule 300 mg PO DAILY oxycodone 5 mg tablet 5 mg PO Q4-6H PRN (Reason: pain) Label Comments: TK 2 TS PO IN AM AND 1 T PO AT LUNCH AND 2 TS PO AT HS dextroamphetamine-amphetamine 20 mg tablet 20 mg PO BID Referrals: Zan King MD [Primary Care Provider] - Visit Report Forms: Patient Portal/API <Karime Small DO - Last Filed: 01/10/22 08:54> Cosign ED Attending Nateature Attestation: I was immediately available in the department for consultation. Documentation has been reviewed.
[2022-01-06] MEDS: KETOROLAC 30 MG/ML VIAL 15 MG IM (18:04)
[2022-01-06] MEDS: DOXYCYCLINE HYCLATE 100 MG TABLET PO (18:04)
[2022-01-06] MEDS: OXYCODONE/ACETAMINOPHEN 5/325 TABLET 1 TAB PO (18:04)
[2022-01-06 18:12] VITALS: BP 180/114; PULSE 87; RESP 18; O2SAT 99
== END 2022-01-06 18:14 | disposition home or self-care (01) ==
PROVIDERS: Emergency Provider Nurse Practitioner Critical Care Medicine; PCP Internal Medicine
DX: L03.115 Cellulitis of right lower limb (principal); L02.415 Cutaneous abscess of right lower limb
CPT/HCPCS: 10060; 87070; 87075; 87077; 87147; 87186; 87205; 96372; 99283; J1885

== ENCOUNTER 2022-04-12 06:37 | Emergency (ER) | payer OTHER, MEDICAID, SELFPAY ==
[2022-04-12 06:45] VITALS: BP 189/116; PULSE 85; RESP 18; TEMP 36.6; O2SAT 98; BMI 21.7
== END 2022-04-12 08:35 | disposition left against medical advice (07) ==
PROVIDERS: Emergency Provider Emergency Medicine; PCP Internal Medicine
CPT/HCPCS: 99281

== ENCOUNTER 2023-05-19 12:54 | Emergency (ER) | payer OTHER, MEDICAID, SELFPAY ==
[2023-05-19] VITALS (9 sets, daily range): BP systolic 139–173; BP diastolic 82–106; PULSE 67–90; RESP 16–21; TEMP 36.3–37.1; O2SAT 97–100; BMI 25.7
--- NOTE | 2023-05-19 13:27 | ED.SKABFB ---
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 Patient states that he 1st noticed the symptoms about 6 days ago and took some of the Keflex that his had left over after a recent hospitalization that she had. He says he took this for a few days but felt that the area was getting bigger and more painful went to see his primary care provider Dr. King and at that time was prescribed Bactrim. Patient states when he saw his PCP 3 days ago the area was about the size of his palm. Patient states he has been taking the Bactrim for 3 days but feels that the areas still getting larger and he is concerned that the medication is not effective. He denies any fevers, chills, nausea, vomiting, change in appetite but states that the area has become increasingly painful and he now feels pain radiating out to his outer buttock and right hip and down into his upper thigh in the back. He states it feels like ?fingers of pain. He notes that he has not currently using opioids other than his prescribed medication and states he does not do methamphetamine either although he is sometimes around people that do. He also states he has 7 children at home and difficulty obtaining summer child caregiver and he is unsure if he will be able to stay in the emergency department today if it is indicated. Related Data Home Medications Medication Instructions Recorded Confirmed gabapentin 300 mg capsule 300 mg PO DAILY 09/15/18 09/15/18 (Neurontin) metoprolol tartrate 25 mg tablet 25 mg PO BID 09/15/18 02/10/19 oxycodone 5 mg tablet 5 mg PO Q4-6H PRN pain 09/15/18 02/10/19 dextroamphetamine-amphetamine 20 20 mg PO BID 02/10/19 mg tablet Previous Rx's Medication Instructions Recorded doxycycline hyclate 100 mg tablet 100 mg PO BID #20 tabs 02/14/21 oxycodone-acetaminophen 5 mg-325 1 tab PO Q8H PRN pain #7 tabs 01/06/ mg tablet (Percocet) Allergies Allergy/AdvReac Type Severity Reaction Status Date / Time clindamycin Allergy Vomiting Verified 04/12/22 06:45 codeine Allergy Verified 01/22/19 11:40 ketorolac [From Toradol] Allergy Verified 05/19/23 13:13 paroxetine [From Paxil] Allergy Verified 01/22/19 11:40 tramadol Allergy Verified 01/22/19 11:40 Review of Systems <Orquidea Meza PA-C - Last Filed: 05/19/23 19:58> Review of Systems Narrative: See HPI Patient History <Orquidea Meza PA-C - Last Filed: 05/19/23 19:58> Medical History Chronic pain Surgical History H/O hand surgery No pertinent past surgical history Social History Smoking Status: Current some day smoker Smoking Status: Current some day smoker tobacco type: cigarettes alcohol intake frequency: 0-2 drinks per day Substance Use Type: marijuana and heroin Exam <Orquidea Meza PA-C - Last Filed: 05/19/23 19:58> Narrative Exam Narrative: GENERAL: [47] year old patient appears stated age. Well-developed patient, in mild distress. HEAD: Atraumatic. Normocephalic. EYES: Pupils equal round and reactive. Extraocular motions intact. No scleral icterus. No injection or drainage. ENT: Nose without bleeding, purulent drainage. Airway patent. NECK: Trachea midline. Non tender CARDIOVASCULAR: Regular rate and rhythm without murmurs, gallops, or rubs. RESPIRATORY: Coarse lung sounds on auscultation. Breath sounds equal bilaterally. Moving good air all spr[place], No wheezes, rales, or rhonchi. GASTROINTESTINAL: Abdomen soft, non-tender, nondistended. EXTREMITIES: There is a raised firm 16 cm x 16 cm area of erythema centered over the patient's right posterior buttock. The center of the raised area has an approximately 1 cm superficial incision present. The area is quite sensitive to light touch and exquisitely painful with moderate to firm palpation. Some induration however suspect fluid collection although there is no definite fluctuance. Strong equal bilateral pedal pulses, No other edema or joint tenderness. BACK: Nontender without deformity or crepitance. No flank tenderness. NEURO: AOx3. SKIN: Pale and chronically ill-appearing, SEE extremities. No rash or erythema of visible areas Initial Vital Signs Initial Vital Signs: Vital Signs Temperature 98.7 F 05/19/23 13:13 Pulse Rate 90 05/19/23 13:13 Respiratory Rate 16 05/19/23 13:13 Blood Pressure 139/82 05/19/23 13:13 Pulse Oximetry 98 05/19/23 13:13 Oxygen Delivery Method Room Air 05/19/23 13:13 <Karime Small DO - Last Filed: 05/20/23 07:15> Initial Vital Signs Initial Vital Signs: Vital Signs Temperature 98.7 F 05/19/23 13:13 Pulse Rate 90 05/19/23 13:13 Respiratory Rate 16 05/19/23 13:13 Blood Pressure 139/82 05/19/23 13:13 Pulse Oximetry 98 05/19/23 13:13 Oxygen Delivery Method Room Air 05/19/23 13:13 Course <Orquidea Meza PA-C - Last Filed: 05/19/23 19:58> Course Course Narrative: Did discuss this patient with Dr. Small, attending physician noting that his vitals look good however he is on metoprolol which could be masking tachycardia, has been on oral antibiotics recently, and his abscess is quite large and concerning, we did discuss antibiotics and will proceed with doxycycline IV at this time, she agrees with the workup for sepsis and imaging plan for CT with contrast. We will consider incision and drainage here in the ER versus surgical consult depending on CT results and labs. 1455 Dr. Small did come and personally evaluate this patient after we reviewed the CT scan together. She does recommend consult with surgery and agrees this patient would benefit from drainage in the OR given his significant pain and chronic pain medicine unlikely we will be able to do a effective incision and drainage in the ER given the size of this abscess and his need for pain control. 1707 After speaking with surgery, discussed at length with the patient indications for admission and patient would be agreeable to this however his recently had surgery and is not in a state to take care of the 7 children that are at home. Patient states he understands the need for the procedure and would like to have this done in the operating room however he needs time to arrange for summer child caregiver and is unwilling to be admitted tonight and stay in the hospital. He will be able to come back in the morning agrees that he will not eat anything after midnight and knows he has to come in through the ER and may not be able to have the surgery tomorrow if he leaves tonight and comes back in the morning. He is willing to be prepared to stay overnight tomorrow if needed in the hospital in order to get the surgery done. Simply needs time to arrange for summer child caregiver given his 's debilitated state. He understands the benefits of staying in the hospital to receive ongoing IV antibiotics and surgery tomorrow, and the risks of leaving the hospital today including worsening infection or . Patient was also provided with option for performing I and D in the emergency department to at least get some drainage of the abscess material however he declines this as he is concerned about the significant pain that may be difficult to control and would like to have this done in the OR. 1740 Orders Ordered: Discontinued Medications Fentanyl (Fentanyl 100 Mcg/2 Ml Inj) 100 mcg IV NOW ONE Stop: 05/19/23 14:59 Last Admin: 05/19/23 15:39 Dose: 100 mcg Documented By: RB Sodium Chloride (Normal Saline 0.9%) 1,000 mls @ 1,000 mls/hr IV BOLUS ONE Stop: 05/19/23 15:45 Last Infusion: 05/19/23 16:11 Dose: Infused Documented By: Admin: 05/19/23 15:00 Dose: 1,000 mls/hr Documented By: RB Doxycycline Hyclate 100 mg/ (Sodium Chloride) 100 mls @ 100 mls/hr IV NOW ONE Stop: 05/19/23 14:59 Last Infusion: 05/19/23 17:20 Dose: Infused Documented By: Infusion: 05/19/23 16:43 Dose: 100 mls/hr Documented By: Infusion: 05/19/23 16:11 Dose: 0 mls/hr Documented By: Admin: 05/19/23 15:40 Dose: 100 mls/hr Documented By: CHELLE Sodium Chloride (Normal Saline 0.9%) 1,000 mls @ 1,000 mls/hr IV BOLUS ONE Stop: 05/19/23 16:00 Last Admin: 05/19/23 15:07 Dose: Not Given Documented By: CHELLE Ondansetron HCl (Ondansetron 4 Mg/2 Ml Inj) 4 mg IV NOW PRN PRN Reason: Nausea And Vomiting Last Admin: 05/19/23 15:06 Dose: 4 mg Documented By: CHELLE Ondansetron HCl (Ondansetron 4 Mg Odt) 4 mg SL NOW PRN PRN Reason: Nausea And Vomiting Consultations Consultation #1: Consulted on-call surgeon Dr. Adnrews about this patient who reviewed patient's imaging and labs, he does recommend he come in under the hospitalist for pain control and be NPO after midnight would likely be able to do surgery in the OR tomorrow around 130 or 2:00 p.m.. Discussed with him that the patient may not be willing to stay in the emergency department due to a family challenges and summer child caregiver and Dr. Andrews did note that it may be possible to get him in tomorrow and becomes back in the morning but there is no guarantee there will be space in the OR. And he will have to come through the ER again. We do not think that waiting for an office visit is appropriate given the patient's significant abscess and history of MRSA with sepsis. 1726 Time: 17:26 Vital Signs Vital signs: Vital Signs - 8 hr 05/19/23 13:13 05/19/23 14:44 05/19/23 15:16 Temperature 98.7 F 97.4 F L Pulse Rate 90 75 78 Respiratory Rate 16 18 18 Blood Pressure 139/82 150/87 H 151/96 H Pulse Oximetry 98 98 98 Oxygen Delivery Method Room Air Room Air Room Air 05/19/23 15:33 05/19/23 16:07 05/19/23 16:30 Temperature Pulse Rate 78 73 Respiratory Rate 20 21 Blood Pressure 153/99 H 167/106 H 141/84 H Pulse Oximetry 99 98 Oxygen Delivery Method Room Air Room Air 05/19/23 16:46 05/19/23 17:05 05/19/23 17:39 Temperature Pulse Rate 67 69 82 Respiratory Rate 18 21 Blood Pressure 173/95 H 148/92 H 142/95 H Pulse Oximetry 100 97 98 Oxygen Delivery Method Room Air Room Air Room Air <Karime Small, - Last Filed: 05/20/23 07:15> Orders Ordered: Discontinued Medications Fentanyl (Fentanyl 100 Mcg/2 Ml Inj) 100 mcg IV NOW ONE Stop: 05/19/23 14:59 Last Admin: 05/19/23 15:39 Dose: 100 mcg Documented By: RB Sodium Chloride (Normal Saline 0.9%) 1,000 mls @ 1,000 mls/hr IV BOLUS ONE Stop: 05/19/23 15:45 Last Infusion: 05/19/23 16:11 Dose: Infused Documented By: Admin: 05/19/23 15:00 Dose: 1,000 mls/hr Documented By: RB Doxycycline Hyclate 100 mg/ (Sodium Chloride) 100 mls @ 100 mls/hr IV NOW ONE Stop: 05/19/23 14:59 Last Infusion: 05/19/23 17:20 Dose: Infused Documented By: Infusion: 05/19/23 16:43 Dose: 100 mls/hr Documented By: Infusion: 05/19/23 16:11 Dose: 0 mls/hr Documented By: Admin: 05/19/23 15:40 Dose: 100 mls/hr Documented By: RB Sodium Chloride (Normal Saline 0.9%) 1,000 mls @ 1,000 mls/hr IV BOLUS ONE Stop: 05/19/23 16:00 Last Admin: 05/19/23 15:07 Dose: Not Given Documented By: RB Ondansetron HCl (Ondansetron 4 Mg/2 Ml Inj) 4 mg IV NOW PRN PRN Reason: Nausea And Vomiting Last Admin: 05/19/23 15:06 Dose: 4 mg Documented By: RB Ondansetron HCl (Ondansetron 4 Mg Odt) 4 mg SL NOW PRN PRN Reason: Nausea And Vomiting Vital Signs Vital signs: Vital Signs - 8 hr 05/19/23 13:13 05/19/23 14:44 05/19/23 15:16 Temperature 98.7 F 97.4 F L Pulse Rate 90 75 78 Respiratory Rate 16 18 18 Blood Pressure 139/82 150/87 H 151/96 H Pulse Oximetry 98 98 98 Oxygen Delivery Method Room Air Room Air Room Air 05/19/23 15:33 05/19/23 16:07 05/19/23 16:30 Temperature Pulse Rate 78 73 Respiratory Rate 20 21 Blood Pressure 153/99 H 167/106 H 141/84 H Pulse Oximetry 99 98 Oxygen Delivery Method Room Air Room Air 05/19/23 16:46 05/19/23 17:05 05/19/23 17:39 Temperature Pulse Rate 67 69 82 Respiratory Rate 18 21 Blood Pressure 173/95 H 148/92 H 142/95 H Pulse Oximetry 100 97 98 Oxygen Delivery Method Room Air Room Air Room Air MDM - Skin/Abscess/Foreign Bdy <Orquidea Meza PA-C - Last Filed: 05/19/23 19:58> Differential Diagnosis Differential diagnosis: Likely abscess of skin or subcutaneous tissue, cellulitis and other (MRSA, sepsis) Medical Records Attestation: I reviewed the patient's medical records. Lab Data Attestation: I reviewed the patient's lab results. 05/19/23 14:36 05/19/23 14:36 Labs: Lab Results 05/19/23 05/19/23 Range/Units 14:36 16:35 WBC 12.9 H (4.5-11.0) X10^3/uL RBC 3.64 L (4.5-5.9) X10^6/uL Hgb 11.6 L (13.5-17.5) g/dL Hct 33.8 L (41-53) % MCV 92.8 (80-100) fL MCH 31.7 (26-34) PG MCHC 34.2 (30-36) % RDW 13.6 (11.6-14.8) % Plt Count 334 (150-400) X10^3/uL Neut % (Auto) 77.1 H (50-75) % Lymph % (Auto) 12.1 L (25-40) % [place] % (Auto) 9.2 (3-14) % Eos % (Auto) 1.4 L (2-4) % Baso % (Auto) 0.2 (0-2) % Neut # (Auto) 9900 H (7289-6884) /uL Lymph # (Auto) 1600 (5269-1335) /uL [place] # (Auto) 1200 H (0-900) /uL Eos # (Auto) 200 (0-450) /uL Baso # (Auto) 0 (0-100) /uL ESR 41 H (0-15) MM/HR PT 12.9 H (9.4-12.5) SECONDS INR 1.1 (0.9-1.3) APTT 28 (25.1-36.5) SECONDS Sodium 135 L (137-145) mmol/L Potassium 4.0 (3.4-5.1) mmol/L Chloride 99 (98-107) mmol/L Carbon Dioxide 29 (22-32) mmol/L BUN 16 (9-20) mg/dL Creatinine 0.96 (0.66-1.25) mg/dL Estimated GFR > 60 (>60) mL/min BUN/Creatinine Ratio 16.7 (6-22) Glucose 96 (70-100) mg/dL Lactate 0.9 (0.7-2.1) mmol/L Calcium 9.3 (8.4-10.2) mg/dL Total Bilirubin 0.7 (0.2-1.3) mg/dL AST 35 (17-59) IU/L ALT 18 (<50) IU/L Alkaline Phosphatase 80 (38-126) U/L C-Reactive Protein 14.3 H (<1.0) mg/dL Total Protein 7.6 (6.3-8.2) g/dL Albumin 4.1 (3.5-5.0) g/dL Globulin 3.5 (1.7-4.1) g/dL Albumin/Globulin Ratio 1.2 (1.0-2.8) Lipase 37 (23-300) U/L Procalcitonin 0.14 (<0.5) ng/mL Urine Color Yellow Urine Appearance Clear Urine pH 7.0 (4.5-8.0) Ur Specific [place] 1.015 (1.000-1.035) Urine Protein Negative (Negative) Urine Glucose (UA) Negative (Negative) g/dL Urine Ketones Negative (NEGATIVE) Urine Occult Blood Trace-intact (Negative) Urine Nitrate Negative (Negative) Urine Bilirubin Negative (NEGATIVE) Urine Urobilinogen 0.2 (0.2) E.U./dL Ur Leukocyte Esterase Negative (NEGATIVE) Urine RBC 0-1/hpf (0-5/HPF) Urine WBC None seen (0-5/HPF) Ur Squamous Epith Cells None seen (0-5/HPF) Urine Bacteria None seen (None) Ur Culture Indicated? Cult not indicated Imaging Data Chest x-ray: My Impression: Agree with Radiology interpretation Radiologist's Impression: [address] [address] XRay Report Signed Patient: Kameron Duffy MR#: [id number] : 1975 Acct:[id number] Age/Sex: 47 / M Date of Service: 05/19/23 Loc: ED Accession Number: [id number] Procedure: XR chest 1V Ordering Provider: Orquidea Meza P.A-C PROCEDURE: XR CHEST 1V INDICATIONS: suspected sepsis TECHNIQUE: One view of the chest was acquired. COMPARISON: None. FINDINGS: Surgical changes and devices: None. Lungs and pleura: Lungs are clear. No pleural effusions or pneumothorax. Mediastinum: Mediastinal contours appear normal. Heart size is normal. Bones and chest wall: No suspicious bony lesions. Overlying soft tissues appear unremarkable. IMPRESSION: No acute cardiopulmonary abnormality is seen. Dictated by: Sundar Peck M.D. on 05/19/2023 at 15:01 Approved by: Sundar Peck M.D. on 05/19/2023 at 15:02 ct pelvis: My Impression: Agree with Radiology interpretation Radiologist's Impression: [address] [address] [address] Scan Report Signed Patient: Kameron Duffy MR#: [id number] : 1975 Acct:[id number] Age/Sex: 47 / M Date of Service: 05/19/23 Loc: ED Accession Number: [id number] Procedure: CT pelvis w con Ordering Provider: Orquidea Meza P.A-C PROCEDURE: CT PELVIS W CON INDICATIONS: Right buttock abscess 16cm TECHNIQUE: After the administration of intravenous contrast, 5 mm thick sections acquired from the iliac crests to the symphysis. 5 mm coronal and sagittal reformats were acquired. For radiation dose reduction, the following was used: automated exposure control, adjustment of mA and/or kV according to patient size. COMPARISON: None. FINDINGS: Image quality: Diagnostic. PELVIS: Peritoneum and Bowel: Bowel loops demonstrate normal wall thickness and caliber. No free fluid or air. Pelvic Organs: No pelvic mass. Bladder: Normal wall thickness, accounting for underdistension. No perivesicular fat stranding. Pelvic Nodes: No enlarged lymph nodes. Miscellaneous: No inguinal hernias are seen. There is a subcutaneous fluid collection within the right gluteal region measuring 75 mm diameter, with severe surrounding fat stranding. Bones: No aggressive osseous abnormality. IMPRESSION: Subcutaneous right gluteal abscess with surrounding cellulitis. Dictated by: Sundar Peck M.D. on 05/19/2023 at 16:49 Approved by: Sundar Peck M.D. on 05/19/2023 at 16:53 ECG Data Attestation: I personally reviewed and interpreted this ECG as follows: Interpretation: Heart rate 72, normal sinus rhythm KS 152 milliseconds QRS 94 milliseconds QTC 429, no ectopy or ST changes noted. Treatment and disposition Social Determinants of Health that impact treatment or disposition: History IV drug use, current exposure /possible use of methamphetamine, chronic opioid dependence Shared decision making:: Shared decision-making was used in determining plan of care/evaluation for this patient and discussed at length recommendations for further care admission and treatment in the hospital today, as above. MDM Narrative Medical decision making narrative: This is a chronically ill-appearing 47-year-old male with history of MRSA, IV drug use, methamphetamine use, HTN who presents to the ER with concern for a worsening abscess of his right buttock after 2-3 days of self administered Keflex and 3 days of Bactrim as prescribed by his PCP. Patient's vitals are unremarkable, however notably he is on metoprolol which could be masking symptoms, he has a very concerning large 16 cm x 16 cm abscess and cellulitis of his right buttock and CT pelvis with contrast is obtained for further evaluation given extent of the abscess. A sepsis workup was pursued given patient's history of MRSA with hospitalization for sepsis and concerning exam findings. Patient had a mild leukocytosis at 12.9 labs were otherwise fairly unremarkable although he notably had increased inflammatory markers with a ESR of 41 and a CRP of 14.3. Did discuss this patient with attending physician and administered IV doxycycline, as well as a L of fluids and fentanyl for pain. Discussed the patient with General surgery on-call after imaging and labs returned, and plan for admission however patient ultimately declines to be admitted today and leaves against medical advice as he needs to arrange childcare for his 7 children given his is still recovering from her recent surgery. Patient does plan to return to the emergency department in the morning get checked in and hopes for possible I and D in the OR tomorrow or the following day if he is admitted with ongoing IV antibiotics. Patient is advised upon departure that he should continue his oral antibiotics(Bactrim) and is given precautions regarding worsening of symptoms and advised to come back sooner than morning if these develop. Extensive discussion as above regarding risks of departing rather than being admitted for continued care evaluation and treatment. <Karime Small, DO - Last Filed: 05/20/23 07:15> Lab Data Labs: Lab Results 05/19/23 05/19/23 Range/Units 14:36 16:35 WBC 12.9 H (4.5-11.0) X10^3/uL RBC 3.64 L (4.5-5.9) X10^6/uL Hgb 11.6 L (13.5-17.5) g/dL Hct 33.8 L (41-53) % MCV 92.8 (80-100) fL MCH 31.7 (26-34) PG MCHC 34.2 (30-36) % RDW 13.6 (11.6-14.8) % Plt Count 334 (150-400) X10^3/uL Neut % (Auto) 77.1 H (50-75) % Lymph % (Auto) 12.1 L (25-40) % [place] % (Auto) 9.2 (3-14) % Eos % (Auto) 1.4 L (2-4) % Baso % (Auto) 0.2 (0-2) % Neut # (Auto) 9900 H (3980-6020) /uL Lymph # (Auto) 1600 (4325-1888) /uL [place] # (Auto) 1200 H (0-900) /uL Eos # (Auto) 200 (0-450) /uL Baso # (Auto) 0 (0-100) /uL ESR 41 H (0-15) MM/HR PT 12.9 H (9.4-12.5) SECONDS INR 1.1 (0.9-1.3) APTT 28 (25.1-36.5) SECONDS Sodium 135 L (137-145) mmol/L Potassium 4.0 (3.4-5.1) mmol/L Chloride 99 (98-107) mmol/L Carbon Dioxide 29 (22-32) mmol/L BUN 16 (9-20) mg/dL Creatinine 0.96 (0.66-1.25) mg/dL Estimated GFR > 60 (>60) mL/min BUN/Creatinine Ratio 16.7 (6-22) Glucose 96 (70-100) mg/dL Lactate 0.9 (0.7-2.1) mmol/L Calcium 9.3 (8.4-10.2) mg/dL Total Bilirubin 0.7 (0.2-1.3) mg/dL AST 35 (17-59) IU/L ALT 18 (<50) IU/L Alkaline Phosphatase 80 (38-126) U/L C-Reactive Protein 14.3 H (<1.0) mg/dL Total Protein 7.6 (6.3-8.2) g/dL Albumin 4.1 (3.5-5.0) g/dL Globulin 3.5 (1.7-4.1) g/dL Albumin/Globulin Ratio 1.2 (1.0-2.8) Lipase 37 (23-300) U/L Procalcitonin 0.14 (<0.5) ng/mL Urine Color Yellow Urine Appearance Clear Urine pH 7.0 (4.5-8.0) Ur Specific [place] 1.015 (1.000-1.035) Urine Protein Negative (Negative) Urine Glucose (UA) Negative (Negative) g/dL Urine Ketones Negative (NEGATIVE) Urine Occult Blood Trace-intact (Negative) Urine Nitrate Negative (Negative) Urine Bilirubin Negative (NEGATIVE) Urine Urobilinogen 0.2 (0.2) E.U./dL Ur Leukocyte Esterase Negative (NEGATIVE) Urine RBC 0-1/hpf (0-5/HPF) Urine WBC None seen (0-5/HPF) Ur Squamous Epith Cells None seen (0-5/HPF) Urine Bacteria None seen (None) Ur Culture Indicated? Cult not indicated Discharge Plan Departure Patient Disposition: Home Clinical Impression: Left against medical advice, Abscess, gluteal, right Activity Restrictions/Additional Instructions: *You have been diagnosed with [leaving against medical advice, gluteal abscess] *What to do: *Please continue to take your regular medications as directed. [ ] New medication prescriptions sent to your pharmacy: [ ] [ ] New medication written as a paper prescription [X ] No new medications given You have elected to leave the Emergency Department today despite our recommendation to get admitted to the hospital and have surgery tomorrow for the abscess of your right buttock. This is your choice, but you could have a worse outcome by not staying in the hospital today. I am glad that you do plan to come back in the morning to the ER and are willing to come into the hospital tomorrow for admission if needed, I am sorry that you are unable to stay due to summer child caregiver needs and ensuring your family is set up before coming in, but it is very important that you do get this treated immediately as oral antibiotics will not be sufficient to take care of this infection. We did check your labs today and gave you some IV antibiotics, there are blood cultures pending. The the IV antibiotic you received is a short-acting antibiotic, I would like you to continue taking the Bactrim oral antibiotics that you were prescribed; I know you feel like they were not very effective, but the reality is that you likely will not improve until you have more IV antibiotics and also have this surgically drained. If you develop worsening symptoms overnight before you come back to the ER please do come back sooner. *Return to Emergency Department immediately if you should have any new, worsening or concerning symptoms, such as [fever greater than 101 F, shaking chills, worsening pain, persistent vomiting or other bothersome symptoms] Prescriptions: No Action doxycycline hyclate 100 mg tablet 100 mg PO BID Qty: 20 0RF metoprolol tartrate 25 mg tablet 25 mg PO BID gabapentin [Neurontin] 300 mg capsule 300 mg PO DAILY oxycodone 5 mg tablet 5 mg PO Q4-6H PRN (Reason: pain) Patient Comments: TK 2 TS PO IN AM AND 1 T PO AT LUNCH AND 2 TS PO AT HS dextroamphetamine-amphetamine 20 mg tablet 20 mg PO BID oxycodone-acetaminophen [Percocet] 5-325 mg tablet 1 tab PO Q8H PRN (Reason: pain) Qty: 7 0RF Referrals: Zan King MD [Primary Care Provider] - Stand Alone Forms: Patient Portal/API ED Sign-out <Karime Small DO - Last Filed: 05/20/23 07:15> Cosign ED Attending Nateature Attestation: I was immediately available in the department for consultation. Case was discussed with myself, patient's labs and imaging report and images were reviewed. Patient was also seen by myself felt he would likely benefit from a clean out in the OR and would not be adequate in the emergency department at bedside. And case was discussed with Dr. Andrews with plan for observation overnight and OR in the a.m. Patient left AMA secondary to personal obligations with family.
--- NOTE | 2023-05-19 14:43 | DI.CT.S_ITS ---
PROCEDURE: CT PELVIS W CON INDICATIONS: Right buttock abscess 16cm TECHNIQUE: After the administration of intravenous contrast, 5 mm thick sections acquired from the iliac crests to the symphysis. 5 mm coronal and sagittal reformats were acquired. For radiation dose reduction, the following was used: automated exposure control, adjustment of mA and/or kV according to patient size. COMPARISON: None. FINDINGS: Image quality: Diagnostic. PELVIS: Peritoneum and Bowel: Bowel loops demonstrate normal wall thickness and caliber. No free fluid or air. Pelvic Organs: No pelvic mass. Bladder: Normal wall thickness, accounting for underdistension. No perivesicular fat stranding. Pelvic Nodes: No enlarged lymph nodes. Miscellaneous: No inguinal hernias are seen. There is a subcutaneous fluid collection within the right gluteal region measuring 75 mm diameter, with severe surrounding fat stranding. Bones: No aggressive osseous abnormality. IMPRESSION: Subcutaneous right gluteal abscess with surrounding cellulitis. Dictated by: Sundar Peck M.D. on 05/19/2023 at 16:49 Approved by: Sundar Peck M.D. on 05/19/2023 at 16:53
--- NOTE | 2023-05-19 14:46 | DI.RAD.S_ITS ---
PROCEDURE: XR CHEST 1V INDICATIONS: suspected sepsis TECHNIQUE: One view of the chest was acquired. COMPARISON: None. FINDINGS: Surgical changes and devices: None. Lungs and pleura: Lungs are clear. No pleural effusions or pneumothorax. Mediastinum: Mediastinal contours appear normal. Heart size is normal. Bones and chest wall: No suspicious bony lesions. Overlying soft tissues appear unremarkable. IMPRESSION: No acute cardiopulmonary abnormality is seen. Dictated by: Sundar Peck M.D. on 05/19/2023 at 15:01 Approved by: Sundar Peck M.D. on 05/19/2023 at 15:02
[2023-05-19] MEDS: SODIUM CHLORIDE 0.9% 1,000 ML 1000 ML IV (15:00)
[2023-05-19] MEDS: ONDANSETRON 4 MG/2 ML INJ IV (15:06)
[2023-05-19 15:30] LABS: Add Manual Diff / Slide Review NO; Basophils Absolute Auto 0 /uL (0-100); Basophils Percent Auto 0.2 % (0-2); Eosinophils Absolute Auto 200 /uL (0-450); Eosinophils Percent Auto 1.4 % (2-4); Hematocrit 33.8 % (41-53); Hemoglobin 11.6 g/dL (13.5-17.5); Lymphocytes Absolute Auto 1600 /uL (1100-4500); Lymphocytes Percent Auto 12.1 % (25-40); Mean Corpuscular HGB Conc 34.2 % (30-36); Mean Corpuscular Hemoglobin 31.7 PG (26-34); Mean Corpuscular Volume 92.8 fL (80-100); Monocytes Absolute Auto 1200 /uL (0-900); Monocytes Percent Auto 9.2 % (3-14); Neutrophils Absolute Auto 9900 /uL (1500-7000); Neutrophils Percent Auto 77.1 % (50-75); Platelet Count 334 X10^3/uL (150-400); Red Blood Cell Count 3.64 X10^6/uL (4.5-5.9); Red Cell Distribution Width 13.6 % (11.6-14.8); White Blood Cell Count 12.9 X10^3/uL (4.5-11.0)
[2023-05-19 15:31] LABS: INR 1.1 (0.9-1.3); Prothrombin Time 12.9 SECONDS (9.4-12.5)
[2023-05-19 15:34] LABS: PTT Partial Thromboplastin Tim 28 SECONDS (25.1-36.5)
[2023-05-19] MEDS: fentaNYL 100 MCG/2 ML INJ IV (15:39)
[2023-05-19] MEDS: DOXYCYCLINE 100 MG in SODIUM CHLORIDE 0.9% 100 ML IV (15:40)
[2023-05-19 15:43] LABS: Lactate (Lactic Acid) 0.9 mmol/L (0.7-2.1)
[2023-05-19 15:45] LABS: Alanine Aminotransferase 18 IU/L (<50); Albumin 4.1 g/dL (3.5-5.0); Albumin Globulin Ratio 1.2 (1.0-2.8); Alkaline Phosphatase 80 U/L (38-126); Aspartate Aminotransferase 35 IU/L (17-59); BUN Creatinine Ratio 16.7 (6-22); Bilirubin Total 0.7 mg/dL (0.2-1.3); Blood Urea Nitrogen 16 mg/dL (9-20); Calcium 9.3 mg/dL (8.4-10.2); Carbon Dioxide 29 mmol/L (22-32); Chloride 99 mmol/L (98-107); Estimated Glomerular Filt Rate > 60 mL/min (>60); Globulin 3.5 g/dL (1.7-4.1); Glucose 96 mg/dL (70-100); HEMOLYSIS < 15 (0-50); Lipase 37 U/L (23-300); Sodium 135 mmol/L (137-145); Total Protein 7.6 g/dL (6.3-8.2)
[2023-05-19 15:59] LABS: Erythrocyte Sedimentation Rate 41 MM/HR (0-15)
[2023-05-19 16:01] LABS: Procalcitonin 0.14 ng/mL (<0.5)
[2023-05-19 16:04] LABS: C-Reactive Protein Quant 14.3 mg/dL (<1.0)
[2023-05-19 17:20] LABS: Appearance Urine UA CLEAR; Bilirubin Urine UA NEGATIVE (NEGATIVE); Color Urine UA YELLOW; Glucose Urine UA NEGATIVE (Negative); Ketones Urine UA NEGATIVE (NEGATIVE); Leukocyte Esterase Urine UA NEGATIVE (NEGATIVE); Nitrite Urine UA NEGATIVE (Negative); Occult Blood Urine UA TRACE-INTACT (Negative); Protein Urine UA NEGATIVE (Negative); Specific Gravity Urine UA 1.015 (1.000-1.035); Urobilinogen Urine UA 0.2 E.U./dL (0.2)
[2023-05-19 17:34] LABS: Bacteria Urine None Seen; Culture Indicated Urine Cult Not Indicated; RBC Urine 0-1/HPF (0-5/HPF); Squamous Epithelial Cell Urine None Seen (0-5/HPF); WBC Urine None Seen (0-5/HPF)
== END 2023-05-19 18:17 | disposition home or self-care (01) ==
PROVIDERS: Emergency Provider Student in an Organized Health Care Education/Training Program; PCP Internal Medicine
DX: L02.31 Cutaneous abscess of buttock (principal)
CPT/HCPCS: 36415; 71045; 72193; 80053; 81001; 83605; 83690; 84145; 85025; 85610; 85651; 85730; 86140; 87040; 87070; 87075; 87205; 93005; 93010; 96365; 96375; 99284; J2405; J3010; Q9967

== ENCOUNTER 2023-05-20 11:54 | Inpatient (IN) | payer OTHER, MEDICAID, SELFPAY ==
[2023-05-20 12:02] VITALS: BP 161/67; PULSE 97; RESP 16; TEMP 36.7; O2SAT 97; BMI 25.7
[2023-05-20 12:57] LABS: Add Manual Diff / Slide Review NO; Basophils Absolute Auto 100 /uL (0-100); Basophils Percent Auto 0.6 % (0-2); Eosinophils Absolute Auto 400 /uL (0-450); Eosinophils Percent Auto 2.9 % (2-4); Hematocrit 31.3 % (41-53); Hemoglobin 10.8 g/dL (13.5-17.5); Lymphocytes Absolute Auto 1700 /uL (1100-4500); Lymphocytes Percent Auto 13.2 % (25-40); Mean Corpuscular HGB Conc 34.4 % (30-36); Mean Corpuscular Hemoglobin 31.9 PG (26-34); Mean Corpuscular Volume 92.8 fL (80-100); Monocytes Absolute Auto 1300 /uL (0-900); Monocytes Percent Auto 10.5 % (3-14); Neutrophils Absolute Auto 9300 /uL (1500-7000); Neutrophils Percent Auto 72.8 % (50-75); Platelet Count 339 X10^3/uL (150-400); Red Blood Cell Count 3.37 X10^6/uL (4.5-5.9); Red Cell Distribution Width 13.3 % (11.6-14.8); White Blood Cell Count 12.8 X10^3/uL (4.5-11.0)
[2023-05-20 13:01] LABS: Alanine Aminotransferase 20 IU/L (<50); Albumin 3.6 g/dL (3.5-5.0); Albumin Globulin Ratio 1.1 (1.0-2.8); Alkaline Phosphatase 76 U/L (38-126); Aspartate Aminotransferase 24 IU/L (17-59); Bilirubin Total 0.5 mg/dL (0.2-1.3); Blood Urea Nitrogen 13 mg/dL (9-20); Calcium 8.9 mg/dL (8.4-10.2); Carbon Dioxide 26 mmol/L (22-32); Chloride 99 mmol/L (98-107); Estimated Glomerular Filt Rate > 60 mL/min (>60); Globulin 3.2 g/dL (1.7-4.1); Glucose 106 mg/dL (70-100); HEMOLYSIS < 15 (0-50); Lipase 53 U/L (23-300); Potassium 4.2 mmol/L (3.4-5.1); Sodium 134 mmol/L (137-145); Total Protein 6.8 g/dL (6.3-8.2)
--- NOTE | 2023-05-20 14:52 | PC.NURSE ---
Pt was seen yesterday for same, instructed to come in early today and provider would attempt to get pt in with surgeon for drainage of large infection, pt has been taking ABX. Pt reports the area is harder, more painful and more raised from yesterday.
--- NOTE | 2023-05-20 15:40 | ED_ITS ---
HPI - Skin/Abscess/Foreign Bdy General Chief complaint: Skin/Abscess/Foreign Body Stated complaint: infection on his rt buttock Time Seen by Provider: 05/20/23 14:28 Source: patient Mode of arrival: Ambulatory Limitations: no limitations History of Present Illness HPI narrative: 47-year-old male history of chronic pain on oxycodone, distant history of IV heroin use, anxiety, hypertension, ADHD, prior MRSA infections with palpitations for sepsis and abscess. Patient was seen yesterday by our PA and also by myself. He did leave Against Medical Advice secondary to family obligations but has returned for treatment. Patient denies any fevers or chills. Patient states quite painful over the buttock. No pain with bowel movements. No difficulty with urination. He denies any nausea or vomiting. Denies any anterior abdominal pain. Patient states has had multiple abscesses before. Has had sepsis in the past. He does use tobacco, occasional alcohol, uses marijuana denies any recent injection drug use. He states that he did try to poke a hole in it to drain the area prior to being seen yesterday. PCP is Dr. King. Related Data Home Medications Medication Instructions Recorded Confirmed oxycodone 5 mg tablet 5 mg PO Q4-6H PRN pain 09/15/18 05/20/23 alprazolam 0.5 mg tablet mg PO 05/20/23 amlodipine 5 mg tablet 5 mg PO DAILY 05/20/23 05/20/23 gabapentin 600 mg tablet 600 mg PO 3XD 05/20/23 05/20/23 sulfamethoxazole 800 1 tab PO BID 05/20/23 05/20/23 mg-trimethoprim 160 mg tablet Allergies Allergy/AdvReac Type Severity Reaction Status Date / Time clindamycin Allergy Vomiting Verified 05/20/23 12:08 codeine Allergy Verified 05/20/23 12:08 ketorolac [From Toradol] Allergy Verified 05/20/23 12:08 paroxetine [From Paxil] Allergy Verified 05/20/23 12:08 tramadol Allergy Verified 05/20/23 12:08 Review of Systems Review of Systems ROS Unobtainable: All systems reviewed & are unremarkable except as noted in HPI and below Patient History Medical History Chronic pain Surgical History H/O hand surgery No pertinent past surgical history Social History household members: spouse and family Smoking Status: Current some day smoker alcohol intake: current Smoking Status: Current some day smoker tobacco type: cigarettes alcohol intake frequency: 0-2 drinks per day Substance Use Type: marijuana Exam Narrative Exam Narrative: GENERAL: Alert and oriented x three, patient in moderate distress. HEENT: Head normocephalic, atraumatic, EOMI, pupils reactive, face symmetric, moist mucous membranes NECK: Supple, full range of motion CARDIOVASCULAR: Regular rate and rhythm without murmurs, rubs or gallops. RESPIRATORY: Breath sounds equal bilaterally, no wheezes rales or rhonchi. ABDOMEN: Soft, nontender. Normoactive bowel sounds all 4 quadrants. No guarding or rebound, rigidity, no mass. Raised firm 16 x 16 cm area of erythema centered over the right posterior buttock areas raised 1-2 cm, quite indurated not fluctuant very sensitive to touch and painful. Patient has markings erythema has not extended much past that area. Does not have any tenderness over the gluteal crease. : No CVA tenderness EXTREMITIES: Normal range of motion, no clubbing or edema. Neurovascularly intact NEUROLOGICAL: Cranial nerves II through XII grossly intact. Moving all extremities SKIN: Warm, dry, no petechiae, no rashes or lesions. Initial Vital Signs Initial Vital Signs: Vital Signs Temperature 98.1 F 05/20/23 12:02 Pulse Rate 97 H 05/20/23 12:02 Respiratory Rate 16 05/20/23 12:02 Blood Pressure 161/67 H 05/20/23 12:02 Pulse Oximetry 97 05/20/23 12:02 Oxygen Delivery Method Room Air 05/20/23 12:02 Course Orders Ordered: ED Orders 05/20/23 12:35 Complete Blood Count AUTO DIFF Stat Comprehensive Metabolic Panel Stat Lipase Stat Acetaminophen (Acetaminophen 325 Mg Tablet) 975 mg PO Q6HR PRN PRN Reason: Fever/Mild Pain (1-3) Alprazolam (Alprazolam 0.25 Mg Tablet) 0.5 mg PO TID PRN PRN Reason: Anxiety Last Admin: 05/20/23 18:11 Dose: 0.5 mg Documented By: MS Amlodipine Besylate (Amlodipine 5 Mg Tablet) 5 mg PO DAILY [facility] Chlorhexidine Gluconate (Chlorhexidine Gluconate 946 Ml Liquid) 236 ml TOP DAILY [facility] Last Admin: 05/20/23 18:04 Dose: 236 ml Documented By: MS Gabapentin (Gabapentin 600 Mg Tablet) 600 mg PO TID [facility] Hydromorphone HCl (Hydromorphone 0.5 Mg Inj) 1 mg IV Q3H PRN PRN Reason: Pain, Severe (7-10) Last Admin: 05/20/23 18:12 Dose: 1 mg Documented By: MS Vancomycin HCl (Vancomycin) 1,000 mg in 200 mls @ 200 mls/hr IV Q8H [facility] Melatonin (Melatonin 3 Mg Tablet) 6 mg PO BEDTIME PRN PRN Reason: Insomnia Mupirocin (Mupirocin 22 Gm Oint) 1 applic TOP BID [facility] Last Admin: 05/20/23 18:10 Dose: 1 applictn Documented By: MS Naloxone HCl (Naloxone 0.4 Mg/Ml Vial) 0.2 mg IV Q2MIN PRN PRN Reason: Opiate Reversal Nicotine (Nicotine 21 Mg Patch) 21 mg TOP DAILY [facility] Last Admin: 05/20/23 18:11 Dose: 21 mg Documented By: Ondansetron HCl (Ondansetron 4 Mg Odt) 4 mg PO NOW PRN PRN Reason: Nausea And Vomiting Ondansetron HCl (Ondansetron 4 Mg/2 Ml Inj) 4 mg IV NOW PRN PRN Reason: Nausea And Vomiting Ondansetron HCl (Ondansetron 4 Mg/2 Ml Inj) 4 mg IV Q4HR PRN PRN Reason: Nausea And Vomiting Oxycodone HCl (Oxycodone Ir 5 Mg Tablet) 5 mg PO Q3HR PRN PRN Reason: Pain, Moderate (4-6) Oxycodone HCl (Oxycodone Ir 10 Mg Tablet) 10 mg PO Q3HR PRN PRN Reason: Pain, Severe (7-10) Vancomycin HCl (Vancomycin Trough) 1 request MIS [id number] [facility] Stop: 05/21/23 15:31 Discontinued Medications Hydromorphone HCl (Hydromorphone 0.5 Mg Inj) 0.5 mg IV Q4H PRN PRN Reason: Pain, Moderate (4-6) Vancomycin HCl/Dextrose (Vancomycin) 1,500 mg in 300 mls @ 200 mls/hr IV NOW ONE Stop: 05/20/23 17:17 Last Admin: 05/20/23 15:58 Dose: 200 mls/hr Documented By: ELIAS Sodium Chloride (Normal Saline 0.9%) 1,000 mls @ 150 mls/hr IV CONT SAJI Last Admin: 05/20/23 17:15 Dose: 150 mls/hr Documented By: JUAN PABLO Morphine Sulfate (Morphine 4 Mg/Ml Inj) 4 mg IV NOW ONE Stop: 05/20/23 15:49 Last Admin: 05/20/23 15:58 Dose: 4 mg Documented By: ELIAS Oxycodone HCl (Oxycodone Ir 5 Mg Tablet) 5 mg PO Q4HR PRN PRN Reason: Pain, Moderate (4-6) Vital Signs Vital signs: Vital Signs - 8 hr 05/20/23 12:02 Temperature 98.1 F Pulse Rate 97 H Respiratory Rate 16 Blood Pressure 161/67 H Pulse Oximetry 97 Oxygen Delivery Method Room Air MDM - Skin/Abscess/Foreign Bdy Lab Data 05/20/23 12:35 05/20/23 12:35 Labs: Lab Results 05/20/23 Range/Units 12:35 WBC 12.8 H (4.5-11.0) X10^3/uL RBC 3.37 L (4.5-5.9) X10^6/uL Hgb 10.8 L (13.5-17.5) g/dL Hct 31.3 L (41-53) % MCV 92.8 (80-100) fL MCH 31.9 (26-34) PG MCHC 34.4 (30-36) % RDW 13.3 (11.6-14.8) % Plt Count 339 (150-400) X10^3/uL Neut % (Auto) 72.8 (50-75) % Lymph % (Auto) 13.2 L (25-40) % [place] % (Auto) 10.5 (3-14) % Eos % (Auto) 2.9 (2-4) % Baso % (Auto) 0.6 (0-2) % Neut # (Auto) 9300 H (2158-7389) /uL Lymph # (Auto) 1700 (6858-0674) /uL [place] # (Auto) 1300 H (0-900) /uL Eos # (Auto) 400 (0-450) /uL Baso # (Auto) 100 (0-100) /uL Sodium 134 L (137-145) mmol/L Potassium 4.2 (3.4-5.1) mmol/L Chloride 99 (98-107) mmol/L Carbon Dioxide 26 (22-32) mmol/L BUN 13 (9-20) mg/dL Creatinine 1.00 (0.66-1.25) mg/dL Estimated GFR > 60 (>60) mL/min BUN/Creatinine Ratio 13.0 (6-22) Glucose 106 H (70-100) mg/dL Calcium 8.9 (8.4-10.2) mg/dL Magnesium 1.9 (1.6-2.3) mg/dL Total Bilirubin 0.5 (0.2-1.3) mg/dL AST 24 (17-59) IU/L ALT 20 (<50) IU/L Alkaline Phosphatase 76 (38-126) U/L Total Protein 6.8 (6.3-8.2) g/dL Albumin 3.6 (3.5-5.0) g/dL Globulin 3.2 (1.7-4.1) g/dL Albumin/Globulin Ratio 1.1 (1.0-2.8) Lipase 53 (23-300) U/L Imaging Data CT 05/20/23 : Radiologist's Impression: [place] [address] CT Scan Report Signed Patient: Kameron Duffy MR#: [id number] : 1975 Acct:[id number] Age/Sex: 47 / M Date of Service: 05/19/23 Loc: ED Accession Number: [id number] Procedure: CT pelvis w con Ordering Provider: Orquidea Meza P.A-C PROCEDURE: CT PELVIS W CON INDICATIONS: Right buttock abscess 16cm TECHNIQUE: After the administration of intravenous contrast, 5 mm thick sections acquired from the iliac crests to the symphysis. 5 mm coronal and sagittal reformats were acquired. For radiation dose reduction, the following was used: automated exposure control, adjustment of mA and/or kV according to patient size. COMPARISON: None. FINDINGS: Image quality: Diagnostic. PELVIS: Peritoneum and Bowel: Bowel loops demonstrate normal wall thickness and caliber. No free fluid or air. Pelvic Organs: No pelvic mass. Bladder: Normal wall thickness, accounting for underdistension. No perivesicular fat stranding. Pelvic Nodes: No enlarged lymph nodes. Miscellaneous: No inguinal hernias are seen. There is a subcutaneous fluid collection within the right gluteal region measuring 75 mm diameter, with severe surrounding fat stranding. Bones: No aggressive osseous abnormality. IMPRESSION: Subcutaneous right gluteal abscess with surrounding cellulitis. Dictated by: Sundar Peck M.D. on 05/19/2023 at 16:49 Approved by: Sundar Peck M.D. on 05/19/2023 at 16:53 [facility] Narrative Medical decision making narrative: Spoke with Dr. Andrews, happy to see patient. Patient's last ingestion was approximately 11:30 today. Patient may have to spend the night overnight and go to the OR 1st thing in the morning but is happy to take him. We will reach out to the OR. Patient is started on dose of IV antibiotic, given dose of pain medication here discussed can do multiple doses as needed as patient might have high tolerance. Patient is agreeable to stay aware that surgery will not be until tomorrow. Does not appear septic at this time. Dr. Andrews called back, cannot take today. Does asked to be admitted to medicine secondary to past medical history. Plan for OR tomorrow possibly noon or 1:[address] Siddiqui, hospitalist accepts for admission. Discharge Plan Departure Patient Disposition: Admitted as Observation Clinical Impression: Abscess of buttock, right Admit Date/Time: 05/20/23 16:21 Admit Provider: Good Siddiqui
[2023-05-20] MEDS: MORPHINE 4 MG/ML INJ IV (15:58)
[2023-05-20] MEDS: VANCOMYCIN 1,500 MG/300 ML PIGGYBACK 200 MG IV (15:58)
--- NOTE | 2023-05-20 16:21 | P.HP_ITS ---
History of Present Illness History of Present Illness Date Patient Seen: 05/20/23 Chief complaint: infection on his rt buttock Narrative: Kameron Duffy is a 47-year-old male with past medical history of skin abscesses, MRSA, IV drug use, anxiety and hypertension presents with large right gluteal abscess. Patient states it has been worsening over a week. His had surgery in the hospital over VARNELL so he tried to ignore while caring for her. He initially came to the ED on 05/19 but then left AMA due to a family situation. He states it is very painful and pulsates with pain. He denies any trauma to the area. He denies CP, NV, SOB, abd pain or diarrhea. PFSH Medical History Chronic pain Surgical History H/O hand surgery No pertinent past surgical history Social History household members: spouse and family Smoking Status: Current some day smoker alcohol intake: current Meds Home Medications and Allergies Home Medications Medication Instructions Recorded Confirmed Type oxycodone 5 mg tablet 5 mg PO Q4-6H PRN pain 09/15/18 05/20/23 History alprazolam 0.5 mg tablet mg PO 05/20/23 History amlodipine 5 mg tablet 5 mg PO DAILY 05/20/23 05/20/23 History gabapentin 600 mg tablet 600 mg PO 3XD 05/20/23 05/20/23 History sulfamethoxazole 800 1 tab PO BID 05/20/23 05/20/23 History mg-trimethoprim 160 mg tablet Allergies Allergy/AdvReac Type Severity Reaction Status Date / Time clindamycin Allergy Vomiting Verified 05/20/23 12:08 codeine Allergy Verified 05/20/23 12:08 ketorolac [From Toradol] Allergy Verified 05/20/23 12:08 paroxetine [From Paxil] Allergy Verified 05/20/23 12:08 tramadol Allergy Verified 05/20/23 12:08 Review of Systems Review of Systems Narrative: All other systems reviewed with the patient and are negative unless otherwise stated. Exam Vital Signs (past 8 hours): - 05/20/23 12:02 Temperature 98.1 F Pulse Rate 97 H Respiratory Rate 16 Blood Pressure 161/67 H Pulse Oximetry 97 Oxygen Delivery Method Room Air Oxygen Delivery Method Room Air Narrative Exam Narrative: GEN: no acute distress HEENT: moist mucous membranes, PERRL NECK: trachea midline, no JVD CV: regular rate and rhythm, no murmurs PULM: clear bilaterally ABD: soft, nontender, nondistended, no organomegaly EXT: warm and well perfused with no edema SKIN: large swollen abscess on R buttock with surrounding erythema NEURO: awake, alert, oriented, no focal deficits Objective Labs 05/20/23 12:35 05/20/23 12:35 Labs: Laboratory Results - last 24 hr 05/20/23 12:35 WBC 12.8 H RBC 3.37 L Hgb 10.8 L Hct 31.3 L MCV 92.8 MCH 31.9 MCHC 34.4 RDW 13.3 Plt Count 339 Neut % (Auto) 72.8 Lymph % (Auto) 13.2 L Gibson % (Auto) 10.5 Eos % (Auto) 2.9 Baso % (Auto) 0.6 Neut # (Auto) 9300 H Lymph # (Auto) 1700 [place] # (Auto) 1300 H Eos # (Auto) 400 Baso # (Auto) 100 Sodium 134 L Potassium 4.2 Chloride 99 Carbon Dioxide 26 BUN 13 Creatinine 1.00 Estimated GFR > 60 BUN/Creatinine Ratio 13.0 Glucose 106 H Calcium 8.9 Total Bilirubin 0.5 AST 24 ALT 20 Alkaline Phosphatase 76 Total Protein 6.8 Albumin 3.6 Globulin 3.2 Albumin/Globulin Ratio 1.1 Lipase 53 Assessment & Plan Assessment & Plan narrative: # right gluteal cellulitis and abscess -general surgery consulted and will take for I&D in OR on 05/21 -start vanco, patient has documented MRSA history -f/up abscess cultures -NPO at midnight -pain control -start MRSA decolonization with BID bactroban to nares and daily hibiclens washes in # history of IVDU -patient used to inject heroin -denies current drug use # anxiety -continue home xanax PRN # tobacco use -nicotine patch 21mg daily # HTN -continue amlodipine Code status is full code. DVT prophylaxis with SCDs. Proxy is spouse Negar. I have reviewed home meds and used all available resources to reconcile the home meds. Case discussed with ED physician/APC and patient will be admitted to the hospitalist service for further workup and management. This patient will be admitted as inpatient and will require greater than 2 midnights of hospital time to treat cellulitis and abscess.
[2023-05-20 16:54] VITALS: BMI 25.7
[2023-05-20] MEDS: SODIUM CHLORIDE 0.9% 1,000 ML 150 ML IV (17:15)
[2023-05-20 17:34] LABS: Magnesium 1.9 mg/dL (1.6-2.3)
[2023-05-20] MEDS: CHLORHEXIDINE GLUCONATE 236 ML TOP (18:04)
[2023-05-20] MEDS: MUPIROCIN 22 GM OINT 1 APPLIC TOP (18:10)
[2023-05-20] MEDS: NICOTINE 21 MG PATCH TOP (18:11)
[2023-05-20] MEDS: ALPRAZolam 0.25 MG TABLET 0.5 MG PO (18:11)
[2023-05-20] MEDS: HYDROMORPHONE 0.5 MG INJ 1 MG IV ×2 (18:12→21:35)
[2023-05-20] MEDS: OXYCODONE IR 10 MG TABLET PO (20:17)
[2023-05-20] MEDS: GABAPENTIN 600 MG TABLET PO (20:17)
[2023-05-20] MEDS: SODIUM CHLORIDE 0.9% FLUSH 10 ML IV (20:18)
[2023-05-20 20:19] LABS: Hemoglobin A1C% w Est Avg Glu 5.4 % (4.0-6.0)
[2023-05-20 20:24] LABS: MRSA (Nasal) PCR Not Detected (Not Detect)
[2023-05-20] MEDS: ACETAMINOPHEN 325 MG TABLET 975 MG PO (21:34)
[2023-05-20 21:45] VITALS: BP 131/91; PULSE 94; RESP 24; O2SAT 97
[2023-05-21] VITALS (7 sets, daily range): BP systolic 132–152; BP diastolic 89–97; PULSE 72–78; RESP 12–17; TEMP 36.2–36.6; O2SAT 96–99; BMI 25.7
[2023-05-21] MEDS: VANCOMYCIN 1,000 MG/200 ML PIGGYBACK 200 MG IV ×3 (00:02→15:50)
[2023-05-21] MEDS: HYDROMORPHONE 0.5 MG INJ 1 MG IV ×2 (03:20→08:33)
[2023-05-21] MEDS: ACETAMINOPHEN 325 MG TABLET 975 MG PO ×3 (03:29→15:23)
[2023-05-21] MEDS: ALPRAZolam 0.25 MG TABLET 0.5 MG PO ×2 (03:30→08:42)
--- NOTE | 2023-05-21 06:28 | PC.NURSE ---
Chronic Care Nurse Note-Patient had significant pain to right buttock rated 7-8/10. Medicated with IV Dilaudid, oxycodone, and Tylenol per prn orders, patient sleep after each dose. Also has moderate anxiety at times, prn Xanax effective. Ice pack and warm pack given per request. No drainage from abscess. NPO after MN. VSS.
[2023-05-21] MEDS: GABAPENTIN 600 MG TABLET PO ×3 (08:42→19:34)
[2023-05-21] MEDS: NICOTINE 21 MG PATCH TOP (08:42)
[2023-05-21] MEDS: SODIUM CHLORIDE 0.9% 1,000 ML 125 ML IV (08:42)
[2023-05-21] MEDS: AMLODIPINE 5 MG TABLET PO (08:47)
[2023-05-21] MEDS: SODIUM CHLORIDE 0.9% FLUSH 10 ML IV (09:00)
[2023-05-21] MEDS: OXYCODONE IR 10 MG TABLET PO (09:12)
--- NOTE | 2023-05-21 09:18 | PM.CALLCOV.1 ---
Call Coverage Note Note Date of Patient Contact: 05/21/23 Time of Patient Contact: 09:18 Narrative of Care Provided: 47-year-old man with right gluteal abscess plan for incision and drainage and operating room late this 05/21
[2023-05-21 11:02] LABS: Hematocrit 35.5 % (41-53); Hemoglobin 11.9 g/dL (13.5-17.5); Mean Corpuscular HGB Conc 33.4 % (30-36); Mean Corpuscular Hemoglobin 30.8 PG (26-34); Mean Corpuscular Volume 92.1 fL (80-100); Platelet Count 284 X10^3/uL (150-400); Red Blood Cell Count 3.86 X10^6/uL (4.5-5.9); Red Cell Distribution Width 13.5 % (11.6-14.8); White Blood Cell Count 12.2 X10^3/uL (4.5-11.0)
[2023-05-21 11:05] LABS: Add Manual Diff / Slide Review YES
[2023-05-21 11:09] LABS: Blood Urea Nitrogen 9 mg/dL (9-20); Carbon Dioxide 26 mmol/L (22-32); Chloride 107 mmol/L (98-107); Estimated Glomerular Filt Rate > 60 mL/min (>60); Glucose 90 mg/dL (70-100); HEMOLYSIS < 15 (0-50); Potassium 4.2 mmol/L (3.4-5.1); Sodium 138 mmol/L (137-145)
[2023-05-21 11:15] LABS: Neutrophils Absolute Manual 9028 /uL (3000-5900); RBC Morphology Normal Morphology; Total Cells Counted 100
[2023-05-21] MEDS: MUPIROCIN 22 GM OINT 1 APPLIC TOP (11:37)
[2023-05-21] MEDS: HYDROMORPHONE 2 MG INJ IV ×3 (12:23→19:34)
[2023-05-21] MEDS: OXYCODONE IR 5 MG TABLET 15 MG PO ×2 (13:39→17:58)
--- NOTE | 2023-05-21 14:12 | CM.DANOTE ---
Addendum entered by HEATHER Pike 05/21/23 16:07: Dr Siddiqui inquired about potential HH for wound care needs. ASPHALT MIXER went to chat with pt- he was already down in pre-op. ASPHALT MIXER spoke with spouse over the phone. Spouse reports he would not prefer HH and would rather do OP- they could take him to either [facility] or [place]. Spouse inquired about what his wound care needs would be- this ASPHALT MIXER referred her to nursing/surgery team. Spouse appreciative. SL Original Note: DCP Assessment Note Pt is a 47yo M here following abscess on his right buttock. Surg scheduled for 1700 today to drain it. Pt was in the ED 05.19.23, for same thing but left AMA in order to arrange childcare for his 7 kids. Pt has a distant history of IV heroin use, Hx of chronic pain. PCP Zan King Payer [employer] healthy options/Medicaid ASPHALT MIXER reviewed EMR. Per provider in rounds, likely dc tomorrow after surg today. Provider reports no IV abx at dc at this time. ASPHALT MIXER entered room and introduced self and role. Pt resting in bed but gave a head nod to speak with spouse and MIL at bedside. Spouse (Lakeisha [phone]) reports pt is indep/drives at baseline. Pt has 7 kids in home along with and MIL. Spouse reports pt is eager to dc home today after surgery due to kids basketball games tomorrow. Spouse denies any CM need at this time. Plan: home when medically stable with family support/transport in POV. No identified CM needs. CM team will continue to follow as needed. HEATHER Pike Discharge Planning/Care Management CM Discharge Assessment Start: 05/21/23 14:11 Freq: Status: Active Protocol: Document 05/21/23 14:11 (Rec: 05/21/23 14:12 [id number]) Discharge Planning Assessment Assigned [employer] HEATHER Sweet DPOA/Assigned Designee Name Lakeisha Duffy (spouse) Contact Information [phone] Advance Directives? No History Provided By Patient,Family Member,Medical Record Prior Living Arrangements House Household Members spouse,family Type of transporation used prior to Drives own vehicle admit Independent with ADL's Yes Is patient alert and oriented? Yes Barriers to Discharge No Discharge Plan Home Transportation Arrangement family in POV Referrals Initiated None needed Whiteboard Updated in Patient Room with Yes name and ext. 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
[2023-05-21] MEDS: LACTATED RINGERS 1,000 ML 42 ML IV (15:25)
--- NOTE | 2023-05-21 15:47 | PC.NURSE ---
Patient taken to preop area via bed at 1500 this afternoon.
[2023-05-21 16:24] LABS: Vancomycin Trough 13.4 ug/mL (10-20)
[2023-05-21] MEDS: VANCOMYCIN TROUGH 1 REQUEST MISC (16:28)
--- NOTE | 2023-05-21 16:30 | SUR.HOLD ---
Patient ambulatory to the bathroom with no assist.
--- NOTE | 2023-05-21 16:31 | P.CONS_ITS ---
History of Present Illness Consult details Date Patient Seen: 05/21/23 Time Patient Seen: 16:31 Chief complaint: infection on his rt buttock Narrative: 47-year-old man admitted to the hospital with a right gluteal abscess. History of IV drug use. Meds Home Medications and Allergies Home Medications Medication Instructions Recorded Confirmed Type oxycodone 5 mg tablet 5 mg PO Q4-6H PRN pain 09/15/18 05/20/23 History alprazolam 0.5 mg tablet mg PO 05/20/23 History amlodipine 5 mg tablet 5 mg PO DAILY 05/20/23 05/20/23 History gabapentin 600 mg tablet 600 mg PO 3XD 05/20/23 05/20/23 History sulfamethoxazole 800 1 tab PO BID 05/20/23 05/20/23 History mg-trimethoprim 160 mg tablet Allergies Allergy/AdvReac Type Severity Reaction Status Date / Time clindamycin Allergy Vomiting Verified 05/20/23 12:08 codeine Allergy Verified 05/20/23 12:08 ketorolac [From Toradol] Allergy Verified 05/20/23 12:08 paroxetine [From Paxil] Allergy Verified 05/20/23 12:08 tramadol Allergy Verified 05/20/23 12:08 Exam Vital Signs (past 8 hours): - 05/21/23 15:26 Temperature 97.9 F Pulse Rate 72 Respiratory Rate 16 Blood Pressure 137/89 Pulse Oximetry 98 Oxygen Delivery Method Room Air Oxygen Delivery Method Room Air Narrative Exam Narrative: General adult man alert oriented no acute distress Chest nonlabored respiration Right lower extremity right gluteal abscess 15 cm maximal diameter fluctuant Objective Labs 05/21/23 10:37 05/21/23 10:37 Labs: Laboratory Results - last 24 hr 05/20/23 05/20/23 05/21/23 12:35 16:48 10:37 WBC 12.2 H RBC 3.86 L Hgb 11.9 L Hct 35.5 L MCV 92.1 MCH 30.8 MCHC 33.4 RDW 13.5 Plt Count 284 Neut % (Auto) Not Reportable Lymph % (Auto) Not Reportable Nicol[place] % (Auto) Not Reportable Eos % (Auto) Not Reportable Baso % (Auto) Not Reportable Lymph # (Auto) Not Reportable [place] # (Auto) Not Reportable Baso # (Auto) Not Reportable Total Counted 100 Seg Neutrophils % 70.0 Band Neutrophils % 4.0 Lymphocytes % (Manual) 11.0 L Monocytes % (Manual) 9.0 Eosinophils % (Manual) 6.0 H Neutrophils # (Manual) 9028 H RBC Morphology Normal morphology Sodium 138 Potassium 4.2 Chloride 107 Carbon Dioxide 26 BUN 9 Creatinine 0.75 Estimated GFR > 60 BUN/Creatinine Ratio 12.0 Glucose 90 Hemoglobin A1c 5.4 Calcium 9.0 Magnesium 1.9 Nasal Screen MRSA (PCR) Not detected Vancomycin Trough 05/21/23 15:40 WBC RBC Hgb Hct MCV MCH MCHC RDW Plt Count Neut % (Auto) Lymph % (Auto) [place] % (Auto) Eos % (Auto) Baso % (Auto) Lymph # (Auto) [place] # (Auto) Baso # (Auto) Total Counted Seg Neutrophils % Band Neutrophils % Lymphocytes % (Manual) Monocytes % (Manual) Eosinophils % (Manual) Neutrophils # (Manual) RBC Morphology Sodium Potassium Chloride Carbon Dioxide BUN Creatinine Estimated GFR BUN/Creatinine Ratio Glucose Hemoglobin A1c Calcium Magnesium Nasal Screen MRSA (PCR) Vancomycin Trough 13.4 PFSH Medical History Chronic pain Surgical History H/O hand surgery No pertinent past surgical history Social History household members: spouse and family Tobacco & Substance Use Smoking Status: Current some day smoker alcohol intake: current Assessment & Plan Assessment and plan (1) Abscess of buttock, right: Status: Acute Assessment & Plan narrative: 47-year-old man with a history of IV drug abuse with a large right gluteal abscess. -incision and drainage of right gluteal abscess -risks benefits alternatives to the procedure were discussed. Provides his written and verbal consent to proceed
--- NOTE | 2023-05-21 16:31 | SUR.OPER ---
Lateral on a hernandez bag, head on pillow, gel axillary roll in place, bottom leg bent with gel pad under knee to foot, upper leg straight and supported with pillows. Upper arm supported by pillows and secured over bottom arm to padded arm board. Safety belt at hip, tape over blanket lower legs.
--- NOTE | 2023-05-21 17:15 | PM.OP.1 ---
Operative Date/Time/Diagnoses Date of procedure: 05/21/23 Time of procedure: 17:15 Pre-op diagnosis: Right gluteal abscess Post-op diagnosis: same Procedure & Clinicians Procedure: Incision and drainage of right gluteal abscess Same procedure as scheduled: Yes Indications: Large painful abscess Surgeon: cShuyler Perry Click Yes if Unassisted: Yes Operative Notes Findings: 300 mL of purulent discharge Specimen(s): other (Gluteal abscess) Estimated Blood Loss (mL): 30 Procedure in detail: Patient was brought to the operating room placed supine on the table. Bilateral lower extremity compression devices were applied. He would received antibiotics prior to skin incision. General anesthesia was induced he was intubated with an LMA. He was then placed into the left lateral decubitus position. He was prepped and draped in sterile fashion time-out was performed. A cruciate incision over the gluteal abscess was made with spontaneous drainage of 300 mL of purulent fluid. Cultures were obtained. The wound was irrigated and then packed with iodoform gauze followed by 4x4s and Medipore tape. The sponge and instrument count of the operation was correct. Patient emerged from anesthesia was transferred to recovery in stable condition. Complications: none Post-operative Condition: stable Disposition: Acute Care
--- NOTE | 2023-05-21 17:54 | PC.NURSE ---
Patient arrived [place] to Room 228 [place] [id number] this evening via bed by CARTON FILLER. Patient's dressing with shadow bloody drainage. He reports pain 9/10, tearful this evening. at bedside supportive, Continuous monitoring.
--- NOTE | 2023-05-21 18:10 | PM.PN.1 ---
Subjective Subjective Interval history: Patient having alot of pain while awaiting surgical drainage later today. Pain meds increased. He is using the bactroban, hibiclens washes and is eager to try to rid himself of MRSA colonization. Exam Vital Signs (past 8 hours): - 05/21/23 15:26 05/21/23 17:13 05/21/23 17:17 Temperature 97.9 F 97.2 F L Pulse Rate 72 78 77 Respiratory Rate 16 17 16 Blood Pressure 137/89 141/92 H 138/90 Pulse Oximetry 98 96 97 Oxygen Delivery Method Room Air Room Air Room Air 05/21/23 17:18 05/21/23 17:23 05/21/23 17:28 Temperature Pulse Rate 76 76 78 Respiratory Rate 15 15 17 Blood Pressure 141/94 H 152/95 H 132/97 H Pulse Oximetry 97 97 99 Oxygen Delivery Method Room Air Room Air Room Air 05/21/23 17:33 Temperature Pulse Rate 73 Respiratory Rate 12 Blood Pressure 137/94 H Pulse Oximetry 99 Oxygen Delivery Method Room Air Oxygen Delivery Method Room Air Narrative Exam Narrative: GEN: no acute distress HEENT: moist mucous membranes, PERRL NECK: trachea midline, no JVD CV: regular rate and rhythm, no murmurs PULM: clear bilaterally ABD: soft, nontender, nondistended, no organomegaly EXT: warm and well perfused with no edema SKIN: large swollen abscess on R buttock with surrounding erythema NEURO: awake, alert, oriented, no focal deficits Objective Labs 05/21/23 10:37 05/21/23 10:37 Labs: Laboratory Results - last 24 hr 05/20/23 05/20/23 05/21/23 12:35 16:48 10:37 WBC 12.2 H RBC 3.86 L Hgb 11.9 L Hct 35.5 L MCV 92.1 MCH 30.8 MCHC 33.4 RDW 13.5 Plt Count 284 Neut % (Auto) Not Reportable Lymph % (Auto) Not Reportable [place] % (Auto) Not Reportable Eos % (Auto) Not Reportable Baso % (Auto) Not Reportable Lymph # (Auto) Not Reportable [place] # (Auto) Not Reportable Baso # (Auto) Not Reportable Total Counted 100 Seg Neutrophils % 70.0 Band Neutrophils % 4.0 Lymphocytes % (Manual) 11.0 L Monocytes % (Manual) 9.0 Eosinophils % (Manual) 6.0 H Neutrophils # (Manual) 9028 H RBC Morphology Normal morphology Sodium 138 Potassium 4.2 Chloride 107 Carbon Dioxide 26 BUN 9 Creatinine 0.75 Estimated GFR > 60 BUN/Creatinine Ratio 12.0 Glucose 90 Hemoglobin A1c 5.4 Calcium 9.0 Nasal Screen MRSA (PCR) Not detected Vancomycin Trough 05/21/23 15:40 WBC RBC Hgb Hct MCV MCH MCHC RDW Plt Count Neut % (Auto) Lymph % (Auto) [place] % (Auto) Eos % (Auto) Baso % (Auto) Lymph # (Auto) [place] # (Auto) Baso # (Auto) Total Counted Seg Neutrophils % Band Neutrophils % Lymphocytes % (Manual) Monocytes % (Manual) Eosinophils % (Manual) Neutrophils # (Manual) RBC Morphology Sodium Potassium Chloride Carbon Dioxide BUN Creatinine Estimated GFR BUN/Creatinine Ratio Glucose Hemoglobin A1c Calcium Nasal Screen MRSA (PCR) Vancomycin Trough 13.4 PFSH Medical History Chronic pain Surgical History H/O hand surgery No pertinent past surgical history Social History household members: spouse and family Smoking Status: Current some day smoker alcohol intake: current Assessment & Plan Assessment & Plan narrative: # right gluteal cellulitis and abscess -general surgery consulted and took for I&D in OR on 05/21 -start vanco, patient has documented MRSA history -op note shows drainage of 300cc of pus, now packed and need BID packing changes -f/up abscess cultures -pain control -start MRSA decolonization with BID bactroban to nares and daily hibiclens washes, patient wants to continue this regimen at home. Plan is x5 days monthly for 6 months. 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 DVT prophylaxis with SCDs. Proxy is spouse Negar. I have reviewed home meds and used all available resources to reconcile the home meds. Dispo: Likely home on 05/22 with to do dressing changes. Quality VTE Deep Vein Thrombosis/Pulmonary Embolism Present on Admission: No
--- NOTE | 2023-05-21 19:24 | P.DS_ITS ---
History of Present Illness History of Present Illness Chief complaint: infection on his rt buttock Narrative: Kameron Duffy is a 47-year-old male with past medical history of skin abscesses, MRSA, IV drug use, anxiety and hypertension presents with large right gluteal abscess. Patient states it has been worsening over a week. His had surgery in the hospital over [place] so he tried to ignore while caring for her. He initially came to the ED on 05/19 but then left AMA due to a family situation. He states it is very painful and pulsates with pain. He denies any trauma to the area. He denies CP, NV, SOB, abd pain or diarrhea. Discharge Providers Provider Date of admission: 05/20/23 16:21 Discharge Date: 05/21/23 Primary care physician: Zan King MD Consults: 05/20/23 16:29 Consult to General Surgery Routine Comment: Consulting Provider: Jacques Andrews Reason for consultation: R gluteal abscess Discharge provider: Good Siddiqui DO Summary Hospital Course Discharge Diagnosis: # right gluteal cellulitis and abscess -general surgery consulted and took for I&D in OR on 05/21 -start vanco, patient has documented MRSA history -op note shows drainage of 300cc of pus, now packed and need BID packing changes -start MRSA decolonization with BID bactroban to nares and daily hibiclens washes, patient wants to continue this regimen at home. Plan is x5 days monthly for 6 months. -discharged on 1 more week of bactrim -sent scripts for mupirocin and hibiclens to use at home -patient's will change packing at home twice per day. # history of IVDU -patient used to inject heroin -denies current drug use # anxiety -continue home xanax PRN # tobacco use -nicotine patch 21mg daily # HTN -continue amlodipine Hospital Course: Admitted for right buttock abscess which was drained in OR. Sent home with packing supplies, bactrim twice daily for 1 week and mupirocin and hibiclens for MRSA decolonization. Exam Vital Signs (past 8 hours): - 05/21/23 15:26 05/21/23 17:13 05/21/23 17:17 Temperature 97.9 F 97.2 F L Pulse Rate 72 78 77 Respiratory Rate 16 17 16 Blood Pressure 137/89 141/92 H 138/90 Pulse Oximetry 98 96 97 Oxygen Delivery Method Room Air Room Air Room Air 05/21/23 17:18 05/21/23 17:23 05/21/23 17:28 Temperature Pulse Rate 76 76 78 Respiratory Rate 15 15 17 Blood Pressure 141/94 H 152/95 H 132/97 H Pulse Oximetry 97 97 99 Oxygen Delivery Method Room Air Room Air Room Air 05/21/23 17:33 Temperature Pulse Rate 73 Respiratory Rate 12 Blood Pressure 137/94 H Pulse Oximetry 99 Oxygen Delivery Method Room Air Oxygen Delivery Method Room Air Narrative Exam Narrative: GEN: no acute distress HEENT: moist mucous membranes, PERRL NECK: trachea midline, no JVD CV: regular rate and rhythm, no murmurs PULM: clear bilaterally ABD: soft, nontender, nondistended, no organomegaly EXT: warm and well perfused with no edema SKIN: R buttock dressing in place s/p I&D NEURO: awake, alert, oriented, no focal deficits Objective Labs 05/21/23 10:37 05/21/23 10:37 Labs: Laboratory Results - last 24 hr 05/20/23 05/20/23 05/21/23 12:35 16:48 10:37 WBC 12.2 H RBC 3.86 L Hgb 11.9 L Hct 35.5 L MCV 92.1 MCH 30.8 MCHC 33.4 RDW 13.5 Plt Count 284 Neut % (Auto) Not Reportable Lymph % (Auto) Not Reportable [place] % (Auto) Not Reportable Eos % (Auto) Not Reportable Baso % (Auto) Not Reportable Lymph # (Auto) Not Reportable [place] # (Auto) Not Reportable Baso # (Auto) Not Reportable Total Counted 100 Seg Neutrophils % 70.0 Band Neutrophils % 4.0 Lymphocytes % (Manual) 11.0 L Monocytes % (Manual) 9.0 Eosinophils % (Manual) 6.0 H Neutrophils # (Manual) 9028 H RBC Morphology Normal morphology Sodium 138 Potassium 4.2 Chloride 107 Carbon Dioxide 26 BUN 9 Creatinine 0.75 Estimated GFR > 60 BUN/Creatinine Ratio 12.0 Glucose 90 Hemoglobin A1c 5.4 Calcium 9.0 Nasal Screen MRSA (PCR) Not detected Vancomycin Trough 05/21/23 15:40 WBC RBC Hgb Hct MCV MCH MCHC RDW Plt Count Neut % (Auto) Lymph % (Auto) [place] % (Auto) Eos % (Auto) Baso % (Auto) Lymph # (Auto) [place] # (Auto) Baso # (Auto) Total Counted Seg Neutrophils % Band Neutrophils % Lymphocytes % (Manual) Monocytes % (Manual) Eosinophils % (Manual) Neutrophils # (Manual) RBC Morphology Sodium Potassium Chloride Carbon Dioxide BUN Creatinine Estimated GFR BUN/Creatinine Ratio Glucose Hemoglobin A1c Calcium Nasal Screen MRSA (PCR) Vancomycin Trough 13.4 PFSH Medical History Chronic pain Surgical History H/O hand surgery No pertinent past surgical history Social History household members: spouse and family Smoking Status: Current some day smoker alcohol intake: current Discharge Plan Discharge Plan Patient Disposition: Home Provider Discharge Comment: Please take the bactrim you already have twice daily for 1 week. Use the hibiclens in the shower and the mupirocin ointment in the nose 5x per month and repeat for 6 months to decolonize from MRSA. You will likely have to get your doctor to send more in if you run out. Change the packing twice daily and cover with a dressing. Dr. Siddiqui Discharge orders & Medications Prescriptions: New chlorhexidine gluconate [Hibiclens] 4 % Liquid 1 applic topical DAILY Qty: 946 0RF Rx Instructions: rub all over body and rinse off in shower mupirocin 2 % Ointment 1 applic topical BID Qty: 22 0RF Rx Instructions: apply to inside of both nostrils Continued gabapentin 600 mg tablet 600 mg PO 3XD amlodipine 5 mg tablet 5 mg PO DAILY alprazolam 0.5 mg tablet 0.5 mg PO TID PRN (Reason: Anxiety) sulfamethoxazole-trimethoprim 800-160 mg tablet 1 tab PO BID 7 Days Qty: 14 0RF oxycodone 5 mg tablet 5 mg PO Q4-6H PRN (Reason: pain) Patient Comments: TK 2 TS PO IN AM AND 1 T PO AT LUNCH AND 2 TS PO AT HS Follow up/Referrals: Zan King MD [Primary Care Provider] - 2 Weeks Visit Report/Discharge Packet Stand Alone Forms: Patient Portal/API, Stroke Signs & Symptoms Discharge Data Primary Care Provider: Zan King VTE Deep Vein Thrombosis/Pulmonary Embolism Present on Admission: No
--- NOTE | 2023-05-21 20:48 | PC.NURSE ---
Discharge Note-MD spoke to patient about staying in the hospital for tonight, patient declined. Medicated with IV Dilaudid prior to IV site removal. Drsg to Rt buttock D/I with small shadow drainage. Ambulating without difficulty. A/O x4, discharge instructions discussed with patient and , including medications, ointment and Hibiclens sent home. Patient packed up all of his own belongings and escorted to Exit by PCT.
== END 2023-05-21 20:15 | disposition home or self-care (01) | DRG 383 ==
LOC: ED 16:21 → ICU 17:21 → AC 09-01 09:09 → ICU 09-01 09:09
PROVIDERS: Surgery; Admitting Provider Student in an Organized Health Care Education/Training Program; Emergency Provider Emergency Medicine; PCP Internal Medicine; Referring Provider Emergency Medicine; Visit Provider Student in an Organized Health Care Education/Training Program
PROC: 0J990ZX Drainage of Buttock Subcutaneous Tissue and Fascia, Open Approach, Diagnostic (ICD-10-PCS; CPT 10060; principal; 2023-05-21 17:00)
DX: L02.31 Cutaneous abscess of buttock (principal); L03.317 Cellulitis of buttock; F41.9 Anxiety disorder, unspecified; I10 Essential (primary) hypertension; Z72.0 Tobacco use; Z22.322 Carrier or suspected carrier of Methicillin resistant Staphylococcus aureus
CPT/HCPCS: 10060; 36415; 71045; 72193; 80048; 80053; 80202; 81001; 83036; 83605; 83690; 83735; 84145; 85007; 85025; 85610; 85651; 85730; 86140; 87040; 87070; 87075; 87077; 87186; 87205; 87797; 93005; 96365; 96375; 99232; 99284; 99285; G0378; J1170; J2250; J2270; J2405; J2704; J3010; Q9967

== ENCOUNTER 2024-01-01 18:32 | Emergency (ER) | payer OTHER, MEDICAID, SELFPAY ==
[2024-01-01 18:35] VITALS: BP 181/112; PULSE 92; RESP 19; TEMP 36.9; O2SAT 100; BMI 25.2
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
[2024-01-01 19:05] VITALS: BP 174/103; PULSE 86; RESP 24; O2SAT 98
[2024-01-01] MEDS: HYDROCODONE/ACET 5/325 TABLET 1 TAB PO (19:11)
[2024-01-01 19:54] VITALS: BP 160/100; PULSE 84; RESP 20; TEMP 36.9; O2SAT 97
[2024-01-01] MEDS: OXYCODONE/APAP 5/325 PREPACK 1 BOTTLE MISC (19:57)
--- NOTE | 2024-01-01 20:03 | PC.NURSE ---
Dr Barajas inspected splint. MD arnold with CMS. Discussed loosening sho wrap for increased pain and swelling. Pt/family understands.
[2024-01-01 20:14] VITALS: BP 145/87; PULSE 87; RESP 18; TEMP 36.8; O2SAT 98
== END 2024-01-01 20:15 | disposition home or self-care (01) ==
PROVIDERS: Emergency Provider Emergency Medicine; PCP Internal Medicine
DX: S62.025A Nondisplaced fracture of middle third of navicular [scaphoid] bone of left wrist, initial encounter for closed fracture (principal); W01.0XXA Fall on same level from slipping, tripping and stumbling without subsequent striking against object, initial encounter
CPT/HCPCS: 29125; 73110; 99283; 99284